=== PATIENT | female | born 1985 | race Caucasian/White ===

== ENCOUNTER 2018-12-09 11:07 | Day surgery (SDC) | payer BC ==
[~2018-12-09 11:07] MED LIST: Lactated Ringers 1,000 ML IV SCH; Oxytocin/Normal Saline 30 UNIT/500 ML BAG IV SCH
[2018-12-09] MEDS ORDERED: Lidocaine 2% 20 ML MDV INJECT ONE (11:08)
[2018-12-09] MEDS ORDERED: Ketorolac 30 MG/ML SDV IVPUSH ONE (11:08)
[2018-12-09] MEDS ORDERED: Ondansetron 4 MG/2 ML SDV IV ONE (11:08)
[2018-12-09] MEDS ORDERED: Propofol 200 MG/20 ML SDV IV ONE (11:08)
[2018-12-09] MEDS ORDERED: Succinylcholine 200 MG/10 ML MDV IV ONE (11:08)
[2018-12-09] MEDS ORDERED: Dexamethasone 4 MG/ML SDV IV ONE (11:08)
[2018-12-09] MEDS ORDERED: Midazolam 1 MG/ML 2 ML SDV IV ONE (11:08)
[2018-12-09] MEDS ORDERED: fentaNYL 100 MCG/2 ML SDV IV ONE (11:08)
[2018-12-09] MEDS ORDERED: Lactated Ringers 1,000 ML IV ONE (11:08)
[2018-12-09] MEDS ORDERED: Silver Nitrate Applicator Each ONE (11:23)
[2018-12-09] MEDS ORDERED: Ferric Subsulfate Topical Soln 8 GM (8 ML) Bottle ONE (11:23)
[2018-12-09] MEDS ORDERED: Ciprofloxacin in D5W 400 MG in Premix Bag 1 BAG IV ONE ×2 (13:04)
[2018-12-09] MEDS ORDERED: Oxytocin/Normal Saline 30 UNIT/500 ML BAG ONE (13:32)
--- NOTE | 2018-12-09 14:26 | HP ---
DATE OF SURGERY: She will be having surgery at approximately 1:45 or 2 p.m. today in the operating room. HISTORY OF PRESENT ILLNESS: This patient is a 33-year-old, 2, para 1 patient, who was referred to us by Dr. Deras. I also saw the patient approximately 2-1/2 days ago in the clinic. She does have a history of having miscarriage and having the passage of tissue and this occurred on November 25. By dates, the patient would have been at approximately 5 to 6 weeks' gestation at that time. As mentioned above, she did pass vaginal tissue and also she had a followup ultrasound ordered by Dr. Deras, which did not reveal any evidence for intrauterine retained products of conception. The patient did quite well at home, and then, she was seen again on followup about 1 week after November 25 visit. Her bleeding seemed to be subsiding at times and then once in a while it would get heavier in nature. Then, this past week, she had an episode of very heavy vaginal bleeding with some large clots. I evaluated her with Dr. Deras in the clinic on 12/07/2018. Her white blood cell count at that time was 6520 and her hemoglobin was 11.1, and we found that the cervix was closed and we did institute Cytotec 400 mcg initially and 200 mcg p.o. every 4-6 hours after that. The patient also gave us a progress report on the telephone the day afterwards and said that she thought her bleeding was somewhat better, but still some bleeding was occurring. Then, the patient also came to the clinic this morning stating that she did have a temperature up to 101.7 degrees early this morning or late last night. She may have had some intermittent chilling. She denies any foul odor to the vaginal discharge. Possibly 3 days ago, there might have been a slight odor to the discharge she states. PAST OBSTETRICAL HISTORY: She did have a section in [place] 2-1/2 years ago and had severe preeclampsia. She also states that she thinks she had aspiration pneumonia after that and apparently her was done under epidural anesthesia. OTHER PAST MEDICAL HISTORY: She otherwise denies any knowledge of heart, liver, or kidney or current lung disease. Previous surgery consists of section 2-1/2 years ago as well as appendectomy and PE tubes. Please see the EHR as it pertains to her current medication list, which consists of Zoloft and vitamins and recent Cytotec, etc. The patient does have a history of polycystic ovarian syndrome, as well as depression and anxiety previously. She states that her depression and anxiety symptoms are under good control at present. FAMILY HISTORY: Noncontributory. SOCIAL HISTORY: She is a nonsmoker and does not use alcohol. 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 PHYSICAL EXAMINATION: Vital Signs: Temperature was 99.3 in the clinic this morning, blood pressure 128/84, pulse 72. Weight 330 pounds. HEENT: The sclerae are nonicteric. Lungs: Clear to A. Heart: Regular rhythm without murmur. Abdomen: Soft, corpulent, and slightly tender in each lower quadrant. There is negative rebound tenderness. There is negative CVA tenderness. PELVIC: Repeat pelvic exam reveals a slight amount of bloody discharge in the vagina and the cervix appears to be closed. I do not detect any malodor to the vaginal secretions at present. The cervix is nontender to motion. On bimanual exam, the uterus is slightly tender, but I cannot detect the size because of her corpulence. She has some very slight bilateral adnexal tenderness to deep palpation, but I do not palpate any masses. Recent repeat transvaginal pelvic ultrasound was repeated again this morning. Of course, there is no evidence for viable , but the radiologist and I have personally discussed the possibility that there could be some possible retained products of conception or blood clot in the central and posterior aspect of the uterine corpus. IMPRESSION: Probable incomplete miscarriage, even though the patient was at just 5 to 6 weeks' gestation. She has not responded to our previous medical management with Cytotec. I note that her white blood cell count today is certainly very normal at 6100. Her hemoglobin today is 10.7. We do recommend D and C with possible suction curettage, and we will certainly give her preoperative antibiotics in the form of Cipro 400 mg IV preoperatively, and also, she will go home with a prescription of Cipro 500 mg p.o. b.i.d. for 7 days. She will see me in the office in approximately 1 weeks, and she will certainly call her attending physician, Dr. Deras, if there are any questions or problems whatsoever in the postoperative period and Dr. Deras is information systems project manager this weekend along with Dr. Shine while I am out of town. We did thoroughly discuss today's procedure and we discussed the goals of the procedure as well as the slight possibility of complications and adverse outcomes including infection, possible organ injury or possible uterine perforation, and remote chances of even hysterectomy. She indeed understands everything we have talked about and does give consent to the procedure. [facility] /[id number] MTDD
--- NOTE | 2018-12-09 22:23 | OR ---
DATE: 12/09/2018 PREOPERATIVE DIAGNOSES: 1. Incomplete miscarriage at approximately 6 weeks' gestation. 2. Possible early endometritis. OPERATIONS PERFORMED: 1. Examination under anesthesia. 2. Dilation and curettage with suction curettage. POSTOPERATIVE DIAGNOSES: 1. Incomplete miscarriage at approximately 6 weeks' gestation. 2. Possible early endometritis. 3. Pathology report pending. DESCRIPTION: After satisfactory general anesthesia was achieved and after the patient had received IV Cipro 400 mg preoperatively, we did proceed with the procedure. The patient was routinely prepped and draped in the usual fashion of course. Bimanual exam revealed the uterus to be in the midposition, and it was somewhat difficult to palpate the uterine size because of her weight of 330 pounds. Now, a weighted speculum was utilized first of all, but because of the depth of the vagina, we did have to convert over to 2 long Ad retractors used both anteriorly and then posteriorly to identify the cervix. The cervix was high in the vaginal vault. The cervix was actually closed. Also, we used a headlamp for better illumination. Now, a single-tooth tenaculum was carefully attached to the anterior lip of the cervix, and the uterus was very gently sounded to approximately 7 to 8 cm. The uterus was in the midposition. Now, the cervix was carefully dilated to #8 and #10 Hegar, and this was done very carefully and gently. Now, the curette was introduced, and a slight amount of tissue was obtained on the curettage. Great caution was taken to make sure that we carefully and systematically curetted all aspects of the uterine cavity, but we were also careful to not over-curette this delicate organ. Now, the suction curette was introduced using a #8 curved cannula, and a slight amount of further tissue was obtained. IV intraoperative Pitocin was now begun at this time. All of the tissue was submitted to the pathologist. All of the instruments were now removed from the cervix. The sponge and instrument count was reported as correct. Estimated blood loss was approximately 50 mL. The patient tolerated the procedure very well and went to the recovery room in good condition. Estimated blood loss, as mentioned above, was approximately 50 mL, and there were no complications of course. The patient did have general anesthesia. Very close and thorough followup instructions were given to the patient and her , and we will also give her Cipro 500 mg p.o. b.i.d. for 8 more days. They were encouraged to call us at once if any questions or problems whatsoever, such as excess bleeding, fever, unusual excess pain, or any leg or lung problems, etc., whatsoever. [facility] /[id number]
== END 2018-12-09 17:45 | disposition home or self-care (01) ==
LOC: DL.SDS 11:07
PROVIDERS: ATTEND Obstetrics & Gynecology
DX: O03.4 Incomplete spontaneous abortion without complication (principal); E28.2 Polycystic ovarian syndrome; K21.9 Gastro-esophageal reflux disease without esophagitis; F32.9 Major depressive disorder, single episode, unspecified; F41.9 Anxiety disorder, unspecified; F32.81 Premenstrual dysphoric disorder; E66.01 Morbid (severe) obesity due to excess calories; Z88.0 Allergy status to penicillin; Z79.899 Other long term (current) drug therapy; Z68.43 Body mass index [BMI] 50.0-59.9, adult
CPT/HCPCS: J0330; J0744; J1100; J1885; J2001; J2250; J2405; J2590; J2704; J3010; J7120

== ENCOUNTER 2020-01-22 11:08 | Observation (INO) | payer BC ==
[2020-01-22] MEDS ORDERED: Acetaminophen 325 MG Tab PO PRN (11:13)
[2020-01-22] MEDS ORDERED: Sodium Chloride 0.9% 10 ML Syringe FLUSH PRN (11:13)
[2020-01-22] MEDS ORDERED: Lactated Ringers 1,000 ML IV SCH (11:15)
[2020-01-22 12:21] LABS: ANION GAP 15.2 mEq/L (7-13); CHLORIDE,CL 102 mmol/L (98-107); PTT,PARTIAL THROMBOPLSTIN TIME 27.1 SEC (22.0-34.0); SODIUM,NA 137 mmol/L (136-145)
[2020-01-22] MEDS: guaiFENesin 600 MG Tab.ER PO SCH ×2 (14:14→21:20)
--- NOTE | 2020-01-22 14:37 | CR ---
EXAMINATION: Chest 1V Frontal SEX: Female AGE: 34 years CLINICAL HISTORY: 34-year-old female with increasing shortness of breath. Interpretation: Upright AP portable chest film unremarkable. Normal cardiac silhouette and pulmonary vascularity. No vascular congestion, cephalization of flow, alveolar edema or dependent effusion. Breast shadows superimposed on lateral chest wall. No focal lobar infiltrate or atelectasis. No lung mass or hilar lymphadenopathy. No pneumothorax, pneumomediastinum or free subdiaphragmatic air. Midline trachea unremarkable. CONCLUSION: Negative exam.
[2020-01-22] MEDS ORDERED: Lactated Ringers 1,000 ML IV ONE ×2 (15:25→20:52)
[2020-01-22] MEDS: Ferrous Sulfate 325 MG Tab PO SCH (18:08)
--- NOTE | 2020-01-22 20:30 | HP ---
CHIEF COMPLAINT: Cough with shortness of breath. HISTORY OF PRESENT ILLNESS: This is a 34-year-old 3, para 1-0-1-1, currently at 31-4/7 weeks' , the patient of Dr. Deras, who presents to the clinic and is seen by the nurse practitioner for increased shortness of breath and decreased oral intake of fluids and generally not improving from recent respiratory illness. Reports that her daughter was seen, evaluated, and diagnosed with croup about 2 weeks ago. About 1 week later, the patient developed symptoms of shortness of breath and cough. She was COVID tested on 01/14, which was negative. She was treated with a prescription for Vantin and is on approximately day 6 of that therapy and reports she has not missed any doses. She is also using some Mucinex DM to help control her symptoms. At this time complaining of chills, sweats, nasal congestion, runny nose, occasional productive cough, wheezing, increased shortness of breath, weakness and fatigue, headache, nausea, vomiting, and diarrhea. She has not had any fever. She still maintains her sense of taste and smell. Denies any abdominal pain. The baby movement has been good. No leakage of fluid or vaginal bleeding. No symptoms of preeclampsia at this time. Having some mild swelling in her legs, but nothing like she has experienced in the past with her preeclampsia, checking her blood pressures at home, and those have been fine. She denies any history of significant respiratory problems and reports she has had some different respiratory illnesses in the past, but nothing quite like this. PAST MEDICAL HISTORY: 1. Anxiety and depression. 2. Obesity. 3. Polycystic ovarian syndrome. 4. Premenstrual dysphoric disorder. 5. Preeclampsia in prior . 6. History of miscarriage x1. : She follows with Dr. Zuleima Deras. Influenza vaccine was declined on 01/02/2020. PIH labs were negative at 28 weeks. She has some mild anemia of and is taking iron with vitamin C once daily. PAST SURGICAL HISTORY: 1. section on 06/04/2016. 2. Laparoscopic appendectomy in 2013. 3. PE tube placement in 1990. 4. [place] teeth extractions split out as 2 separate procedures in 2009. FAMILY HISTORY: Mother is alive with anxiety. Had a history of delivery x3. Miscarriage x6. Premature rupture of membranes. Father is alive and has a history of traumatic brain injury. Two brothers are alive and well. All of the grandparents are . Maternal grandmother had complications of West Nile. Paternal grandmother had complications of influenza. Maternal grandfather has a history of alcohol abuse. Paternal grandfather has a history of heart attack. SOCIAL HISTORY: The patient is a nonsmoker, but her smokes outside. No use of any alcohol or drugs. She is and works over at the [employer], currently they only have 2 clients staying there and she has had minimal contact with them. They have 1 daughter. MEDICATIONS: Aspirin 81 mg p.o. daily, Vantin 200 mg p.o. b.i.d., sertraline 100 mg p.o. daily, vitamin C 500 mg daily, iron sulfate 325 mg daily, Benadryl 50 mg as needed, vitamin 1 daily, and Zyrtec 10 mg daily has needed. ALLERGIES: Penicillin causes a rash. REVIEW OF SYSTEMS: As per the history of present illness. She denies any uterine contractions. No new numbness or tingling. No skin rashes. No new psychiatric symptoms. PHYSICAL EXAMINATION: General: A 34-year-old female, in no acute distress, but does have visible shortness of breath at the clinic. Vital Signs: Blood pressure is 134/87; pulse of 104; temperature is 98.7; weight is 334 pounds, is actually a decrease of 9 pounds from when she was seen on 01/15/2020; and O2 saturation is 95% on room air. HEENT: Head is normocephalic and atraumatic. The tympanic membranes are normal. Nasal congestion is present. Mucous membranes are somewhat dry. Oropharynx is clear, but there is some mild erythema of the tonsillar pillars. Heart: Tachycardic and regular without murmur. Lungs: Decreased air movement throughout, and left upper lobe with some expiratory wheezing noted. Abdomen: Soft and nontender. Nonstress test is currently pending. No lymphadenopathy. Neurological: No focal deficits. Psychiatric: Appropriate and oriented to who, the situation, and circumstances. ASSESSMENT: 1. Respiratory infection, needs further evaluation to delineate bronchitis, pneumonia, and etiology whether viral bacterial or COVID-19. 2. Clinical dehydration as evidenced by tachycardia, dark urine, and reported poor oral intake. 3. Cough. 4. 31 weeks 4 days' gestation. 5. History of preeclampsia in prior . 6. Anemia of . 7. History of anxiety and depression. 8. The patient has declined influenza and Tdap vaccines. PLAN: At this time, the patient will be admitted to the hospital. We will collect a rapid COVID test as well as a strep test. I will get her started on some IV fluids, initially planning on those being boluses rather than a continuous infusion. I have consulted the hospitalist and discussed a number of tests that he would like performed for baseline, understanding that some of these may be elevated just because of , but we will include CBC, CMP, CRP, lactic acid, procalcitonin, ferritin, troponin, LDH, INR, PTT, and a BN peptide levels to reassure the patient. We can do a single view chest x-ray, which would be a minimal to no risk for the baby, but pending her clinical course and how that x-ray first appears, we may need to proceed forward with low- dose CT scan hoping that this infection turns out not to be a COVID infection, and she can be managed more as a bronchitis or pneumonia type situation, but discussed with her the importance of full evaluation and what needs to be performed. The hospitalist can see her later on today after all of her lab results are in. [facility] /[id number]
[2020-01-22] MEDS ORDERED: Azithromycin 250 MG Tab PO STA (20:58)
[2020-01-22] MEDS ORDERED: Prenatal Multivitamin with Calcium/Folic Acid/Iron Tab PO SCH (21:00)
[2020-01-22] MEDS ORDERED: Sertraline 50 MG Tab PO SCH (21:00)
[2020-01-22] MEDS: Ascorbic Acid 500 MG Tab PO SCH (21:20)
[2020-01-23] MEDS ORDERED: Aspirin 81 MG Tab.EC PO SCH (08:00)
[2020-01-23] MEDS: guaiFENesin 600 MG Tab.ER PO SCH (08:18)
[2020-01-23] MEDS: Ferrous Sulfate 325 MG Tab PO SCH (09:56)
[2020-01-23] MEDS: Ascorbic Acid 500 MG Tab PO SCH (09:57)
--- NOTE | 2020-01-23 10:25 | DISCH ---
ADMITTING DIAGNOSES: 1. Lower respiratory tract infection. 2. Dehydration in . 3. Cough. 4. 31 weeks' 4 days' gestation. 5. History of preeclampsia, prior , requiring delivery. 6. Anemia of . 7. Anxiety and depression history. 8. The patient declined influenza and Tdap vaccinations. DISCHARGE DIAGNOSES: 1. Lower respiratory tract infection. 2. Dehydration in . 3. Cough. 4. 31 weeks' 4 days' gestation. 5. History of preeclampsia, prior , requiring delivery. 6. Anemia of . 7. Anxiety and depression history. 8. The patient declined influenza and Tdap vaccinations. 9. Clinically ruled out for coronavirus disease at this time. Overall impression consistent with viral respiratory infection. However, with having 6 to 7 days of antibiotics prior, cannot rule out bacterial infection. BRIEF HISTORY: A 34-year-old female with the above-listed diagnoses presented to the clinic reporting onset of respiratory symptoms greater than 1 week ago and having had about 6 days of Vantin oral antibiotics, but increasing shortness of breath, decreased ability to take down fluids well. -related symptoms were really none. She had several respiratory illness infections including chills, sweats, nasal congestion, runny nose, productive cough, wheezing, increased shortness of breath, weakness, fatigue, headache, nausea, vomiting, and diarrhea, but had not had fever. Since her symptoms were worsening and she was tachycardic, decision was made to admit her to the hospital for IV fluid rehydration and complete evaluation for potential COVID infection despite having a negative COVID test 1 week earlier. Upon admission, I discussed the patient's case with the hospitalist to get further recommendations regarding appropriate yet full clinical workup for COVID infection and lab orders were placed based on his recommendations. Her CBC showed white blood cell count of 6.9, hemoglobin 11.4, neutrophils 86.4%, and platelets 239. PT and INRs are normal. Comprehensive metabolic profile remarkable for an anion gap of 15.2, BUN normal for at 6, AST of 13, alkaline phosphatase normal for at 154, albumin 2.3, otherwise unremarkable. Her C-reactive protein is elevated at 6.4. Troponin is negative. LDH normal. Ferritin normal. Lactic acid normal at 1.4, and her rapid COVID test was negative. Chest x-ray was read out as negative per the radiologist, but I do see just some mild infiltrative signs consistent with her productive cough, but no focal pneumonias, infiltrates, and not consistent with atypical COVID infection x-ray. HOSPITAL COURSE: Overnight, she received a total of 3 L of IV fluids via IV fluid boluses and her pulse rate came down into the 70s and 80s. Blood pressures were well controlled in the 130s over 60s and 80s, respiratory rate of 16, and her O2 saturations maintained well on room air. By the morning after admission, she was already starting to feel better. The incentive spirometer was helping her with increased production of her cough and overall helping get the mucus out of her chest making it easier for her to breathe. She feels well going home and that she can manage well at home with her symptoms. Discussed with her that this is likely a simple viral infection. However, with a week of antibiotics, it is a little bit confusing, so we are going to discharge her home on 2 more doses of Zithromax to finish out the course and she understands she needs to stay home from work until she is symptomatically improved and doing better from that standpoint. She has been afebrile, so absence of fever is not going to be one of the criteria. DISCHARGE CONDITION: Improved. PHYSICAL EXAMINATION: Vital Signs: Temperature is 98.9, pulse 75, blood pressure 134/66, respiratory rate of 16, O2 saturation was last 99% on room air. NSTs have been category 1, reactive and reassuring for criteria. Heart: Regular without murmur. Lungs: Mostly clear, but she does have a little bit of rhonchi noted in the right lower lobe this morning. Abdomen: Soft, nontender. Gravid uterus. Positive bowel sounds. Extremities: Edema is trace. LABORATORY DATA: No new labs on day of discharge. DISCHARGE MEDICATIONS: Continue Zoloft 100 mg p.o. daily, Zithromax 500 mg p.o. daily for 2 days, vitamin, continue 1 daily, aspirin 81 mg 1 daily, vitamin C 500 mg daily, and iron 325 mg daily. ADDITIONAL LABORATORIES: Influenza and strep swabs were also negative. FOLLOWUP: She will see Dr. Deras next week in clinic for routine care and followup of this hospitalization. The patient is comfortable with that plan and all of her questions answered. She understands reasons to return to clinic or hospital for further evaluation should any problems arise. [facility] /[id number]
== END 2020-01-23 11:11 | disposition home or self-care (01) ==
LOC: UNDOADMOB 11:13 → DL.MS 11:13
PROVIDERS: ADMIT Family Medicine; ATTEND Family Medicine
DX: J22 Unspecified acute lower respiratory infection (principal); O99.283 Endocrine, nutritional and metabolic diseases complicating pregnancy, third trimester; R05 Cough; O99.013 Anemia complicating pregnancy, third trimester; F41.9 Anxiety disorder, unspecified; F32.9 Major depressive disorder, single episode, unspecified; E66.9 Obesity, unspecified; E28.2 Polycystic ovarian syndrome; Z87.59 Personal history of other complications of pregnancy, childbirth and the puerperium; Z90.89 Acquired absence of other organs; Z20.828 Contact with and (suspected) exposure to other viral communicable diseases; Z88.0 Allergy status to penicillin; Z79.899 Other long term (current) drug therapy; Z79.82 Long term (current) use of aspirin; Z68.43 Body mass index [BMI] 50.0-59.9, adult; Z3A.31 31 weeks gestation of pregnancy
CPT/HCPCS: 36415; 59025; 71045; 80053; 82570; 82728; 83605; 83615; 83880; 84156; 84484; 85025; 85610; 85730; 86140; 87081; 87430; 87635; 87804; 96360; 96361; A9270; G0378; G0379; J7120; U0002

== ENCOUNTER 2020-02-16 19:19 | Inpatient (IN) | payer BC ==
[~2020-02-16 19:19] MED LIST changes: -Lactated Ringers 1,000 ML IV SCH; +Oxytocin/Normal Saline 30 UNIT/500 ML BAG IV ONE; -Oxytocin/Normal Saline 30 UNIT/500 ML BAG IV SCH
[2020-02-16] MEDS: Lactated Ringers 1,000 ML IV SCH ×3 (19:40→23:21)
[2020-02-16] MEDS ORDERED: Carboprost Tromethamine 250 MCG/1 ML Amp IM PRN (19:43)
[2020-02-16] MEDS ORDERED: Methylergonovine 0.2 MG Tab PO PRN (19:43)
[2020-02-16] MEDS ORDERED: Tranexamic Acid 1,000 MG in Sodium Chloride 0.9% 100 ML IV PRN (19:43)
[2020-02-16] MEDS ORDERED: Oxytocin/Normal Saline 30 UNIT/500 ML BAG IV SCH (19:45)
[2020-02-16] MEDS ORDERED: Magnesium Sulfate/Water 100 ML ONE (19:47)
[2020-02-16] MEDS ORDERED: Labetalol 20 MG/4 ML Syringe ONE (19:51)
[2020-02-16] MEDS ORDERED: Oxytocin/Normal Saline 60 UNIT/1,000 ML BAG ONE (19:53)
--- NOTE | 2020-02-16 19:54 | PCM.LDHP ---
L&D History of Present Illness - General Date of Service: 02/16/20 Admit Problem/Dx: Patient Status Order with Admit Dx/Problem 02/16/20 19:43 Patient Status [ADT] Routine Admission Diagnosis/Problem Admission Diagnosis/Problem care - History of Present Illness Introduction:: 34-year-old at 35w1d presents to L&D with a gush of fluid followed by vaginal bleeding. Upon arrival to L&D a saturated pad was noted with blood in the toilet as well. Patient has a history of pre-eclampsia with a prior at 35w3d. She is currently on aspirin. BPs at last OB visits were 140s over 80s. Patient denies headaches, increased swelling or abdominal pain. Patient is COVID positive. - Related Data Allergies/Adverse Reactions: Allergies Allergy/AdvReac Type Severity Reaction Status Date / Time Penicillins Allergy Rash Verified 11/25/18 16:32 Home Medications: Home Meds Cetirizine HCl [Zyrtec] 10 mg PO ASDIRECTED PRN 11/25/18 [History] diphenhydrAMINE HCL [Benadryl Allergy] 50 mg PO .PRN PRN 12/09/18 [History] Aspirin [Halfprin] 81 mg PO DAILY 01/22/20 [History] Calcium Carb/Vitamin D3/Vit K1 [Calcium + D Soft Chewable Tab] 2 tab.chew PO DAILY 01/22/20 [History] Pnv No.103/Folic/Om3s/Fish Oil [ Gummies] 2 tab.chew PO DAILY 01/22/20 [History] Sertraline [Zoloft] 100 mg PO BEDTIME 01/22/20 [History] Azithromycin [Zithromax] 500 mg PO DAILY #2 tab 01/23/20 [Rx] guaiFENesin [Mucinex] 600 mg PO TID tab.er 01/23/20 [Rx] Past Medical History HEENT History: Reports: Impaired Vision Cardiovascular History: Reports: None Respiratory History: Reports: None Gastrointestinal History: Reports: Other (See Below) Other Gastrointestinal History: GERD during previous Genitourinary History: Reports: None 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 History: Reports: Polycystic Ovaries, Other OB/BYN History: ovarian cysts Musculoskeletal History: Reports: Back Pain, Chronic, Neck Pain, Chronic, Other (See Below) Other Musculoskeletal History: nerve sensitivity at site of her epidural she had 2 years ago Neurological History: Reports: None Psychiatric History: Reports: Anxiety, Depression, Panic Attack Endocrine/Metabolic History: Reports: Obesity/BMI 30+ Hematologic History: Reports: Iron Deficiency Immunologic History: Reports: None Oncologic (Cancer) History: Reports: None Dermatologic History: Reports: None - Infectious Disease History Infectious Disease History: Reports: Chicken Pox - Past Surgical History HEENT Surgical History: Reports: Myringotomy w Tube(s) Cardiovascular Surgical History: Reports: None GI Surgical History: Reports: Appendectomy Female Surgical History: Reports: Section, D&C Endocrine Surgical History: Reports: None Musculoskeletal Surgical History: Reports: None Social & Family History - Family History Family Medical History: Noncontributory - Caffeine Use Caffeine Use: Reports: Coffee Other Caffeine Use: 2 cans of soda daily. Occasional coffee drinker Caffeine Use Comment: once per week - Living Situation & Occupation Living situation: Reports: with Family H&P Review of Systems - Review of Systems: Review Of Systems: See Below General: Reports: No Symptoms HEENT: Reports: No Symptoms Pulmonary: Reports: No Symptoms Cardiovascular: Reports: No Symptoms Genitourinary: Reports: Other (Vaginal bleeding) Musculoskeletal: Reports: No Symptoms Skin: Reports: No Symptoms Psychiatric: Reports: No Symptoms Neurological: Reports: No Symptoms L&D Exam - Exam Exam: See Below - OB Specific Movement: Active Heart Tones: Present Heart Tones per Min: 150 Heart Rate (FHR) Variability: Moderate (6-25 bmp) - Exam General: Alert, Oriented Lungs: Clear to Auscultation, Normal Respiratory Effort Cardiovascular: Regular Rate, Regular Rhythm. No: Systolic Murmur, Diastolic Murmur Extremities: Pedal Edema (Trace bilaterally) Skin: Warm, Dry, Intact Psychiatric: Alert - Problem List (1) care in third trimester SNOMED Code(s): 228994580, 50813627, 73905789, 728621697, 294378956 ICD Code: Z34.93 - ENCNTR FOR SUPRVSN OF NORMAL PREG, UNSP, THIRD TRIMESTER Status: Acute Current Visit: Yes (2) Pre-eclampsia in third trimester SNOMED Code(s): 409575072, 820644806 ICD Code: O14.93 - UNSPECIFIED PRE-ECLAMPSIA, THIRD TRIMESTER Status: Acute Current Visit: Yes (3) Vaginal bleeding, abnormal SNOMED Code(s): 494915624 ICD Code: N93.9 - ABNORMAL UTERINE AND VAGINAL BLEEDING, UNSPECIFIED Status: Acute Current Visit: Yes (4) Anemia affecting in third trimester SNOMED Code(s): 46423342, 56301365 ICD Code: O99.013 - ANEMIA COMPLICATING , THIRD TRIMESTER Status: Acute Current Visit: Yes Problem List Initiated/Reviewed/Updated: Yes Orders Last 24hrs: Active Orders 24 hr Category Date Time Status Patient Status [ADT] Routine ADT 02/16/20 19:43 Ordered Non Stress Test [RC] PER UNIT ROUTINE Care 02/16/20 19:43 Ordered Notify Provider Vital Signs OB [RC] ASDIRECTED Care 02/16/20 19:43 Ordered Peripheral IV Care [RC] . DIRECTED Care 02/16/20 19:44 Ordered Procedure Site Prep Instruct [RC] ASDIRECTED Care 02/16/20 19:43 Ordered RT Incentive Spirometry [RC] ASDIRECTED Care 02/16/20 19:43 Ordered Vital Signs [RC] PER UNIT ROUTINE Care 02/16/20 19:43 Ordered Nothing Per Oral Diet [DIET] Diet 02/16/20 Breakfast Ordered ABO/RH TYPE [BBK] Routine Lab 02/16/20 19:48 Ordered ALANINE AMINOTRANSFERASE,ALT [CHEM] Routine Lab 02/16/20 19:47 Ordered ASPARTATE AMNIOTRANSFERASE,AST [CHEM] Routine Lab 02/16/20 19:47 Ordered BLOOD UREA NITROGEN,BUN [CHEM] Routine Lab 02/16/20 19:47 Ordered CBC W/O DIFF,HEMOGRAM [HEME] Routine Lab 02/16/20 19:47 Ordered CBC WITH AUTO DIFF [HEME] Routine Lab 02/16/20 19:43 Ordered CREATININE W/GFR [CHEM] Routine Lab 02/16/20 19:47 Ordered LACTATE DEHYDROGENASE,LDH [CHEM] Routine Lab 02/16/20 19:47 Ordered PROTEIN/CREATININE RATIO,URINE [URCHEM] Routine Lab 02/16/20 19:47 Ordered RED BLOOD CELLS LP [BBK] Urgent Lab 02/16/20 19:43 Ordered TYPE AND SCREEN [BBK] Routine Lab 02/16/20 19:43 Ordered TYPE AND SCREEN [BBK] Urgent Lab 02/16/20 19:43 Ordered UA W/O MICROSCOPIC [URIN] Routine Lab 02/16/20 19:47 Ordered URIC ACID [CHEM] Routine Lab 02/16/20 19:47 Ordered Carboprost Tromethamine [Hemabate DS] Med 02/16/20 19:43 Ordered 250 mcg IM ASDIRECTED PRN Citric Acid/Sodium Citrate [Bicitra Solution] Med 02/16/20 19:43 Once 30 ml PO ONETIME ONE Labetalol [Normodyne] Med 02/16/20 19:46 Once 40 mg IVPUSH ONETIME ONE Lactated Ringers @ 125 MLS/HR(1000ml) Med 02/16/20 19:45 Ordered Lactated Ringers [Ringers, Lactated] 1,000 ml IV ASDIRECTED Lactated Ringers [Ringers, Lactated] 1,000 ml Med 02/16/20 19:45 Ordered IV .BOLUS Magnesium Sulfate 2 GM in Water @ 100 MLS/HR (200ml) Med 02/16/20 19:47 Ordered Magnesium Sulfate/D5W [Magnesium Sulfate in D5W 100 Premix] 1 gm in 100 ml IV ONETIME Magnesium Sulfate 4 GM in Water @ 300 MLS/HR (100ml) Med 02/16/20 19:47 Ordered Magnesium Sulfate/Water [Magnesium Sulfate in Water Premix] 4 gm in 100 ml IV ONETIME Methylergonovine [Methergine] Med 02/16/20 19:43 Ordered 0.2 mg PO ONETIME PRN Oxytocin 30 Units in NS @ 2 MUNITS/MIN(500ml) Med 02/16/20 19:45 Ordered Oxytocin/Normal Saline [Pitocin in NS 30 UNIT/500 ML] 30 unit in 500 ml IV TITRATE Sodium Chloride 0.9% [Saline Flush] Med 02/16/20 19:43 Ordered 10 ml FLUSH ASDIRECTED PRN Tranexamic Acid [Cyklokapron] 1,000 mg Med 02/16/20 19:43 Ordered Sodium Chloride 0.9% [Normal Saline] 100 ml IV ONETIME ceFAZolin [Ancef] 2 gm Med 02/16/20 19:43 Ordered Premix Bag 1 bag IV ONETIME Peripheral IV Insertion Adult [OM.PC] Routine Oth 02/16/20 19:43 Ordered Schedule Procedure [COMM] Per Unit Routine Oth 02/16/20 19:43 Ordered Resuscitation Status Routine Resus Stat 02/16/20 19:43 Ordered Medication Orders Carboprost Tromethamine (Hemabate Ds) 250 mcg IM ASDIRECTED PRN PRN Reason: Excessive vaginal bleeding Citric Acid/Sodium Citrate (Bicitra Solution) 30 ml PO ONETIME ONE Stop: 02/16/20 19:44 Tranexamic Acid 1,000 mg/ (Sodium Chloride) 110 mls @ 660 mls/hr IV ONETIME PRN PRN Reason: Bleeding Oxytocin/Sodium Chloride (Pitocin In Ns 30 Unit/500 Ml) 30 unit in 500 mls @ 2 mls/hr IV TITRATE NICOLA; Protocol Cefazolin Sodium/Dextrose 2 gm (/ Premix) 50 mls @ 100 mls/hr IV ONETIME ONE Stop: 02/16/20 20:12 Magnesium Sulfate (Magnesium Sulfate In Water Premix) 4 gm in 100 mls @ 300 mls/hr IV ONETIME ONE Stop: 02/16/20 20:06 Magnesium Sulfate/Dextrose (Magnesium Sulfate In D5w 100 Premix) 1 gm in 100 mls @ 100 mls/hr IV ONETIME ONE Stop: 02/16/20 20:46 Lactated Ringer's (Ringers, Lactated) 1,000 mls @ 125 mls/hr IV ASDIRECTED NICOLA Lactated Ringer's (Ringers, Lactated) 1,000 mls @ 500 mls/hr IV .BOLUS NICOLA Labetalol HCl (Normodyne) 40 mg IVPUSH ONETIME ONE Stop: 02/16/20 19:47 Methylergonovine Maleate (Methergine) 0.2 mg PO ONETIME PRN PRN Reason: Excessive vaginal bleeding Sodium Chloride (Saline Flush) 10 ml FLUSH ASDIRECTED PRN PRN Reason: Keep Vein Open Assessment/Plan Comment:: 1. PIH labs and CBC ordered 2. Will proceed with repeat section ANGÉLICA 3. 40 mg IV labetalol ANGÉLICA 4. Will plan to initiate magnesium after closure 5. 1 gram TXA after delivery of 6. Routine preoperative orders Zuleima Deras MD
[2020-02-16] MEDS ORDERED: Citric Acid/Sodium Citrate Solution 30 ML Cup ONE (20:00)
[2020-02-16] MEDS ORDERED: Lactated Ringers 1,000 ML IV SCH ×2 (20:30→22:00)
[2020-02-16] MEDS ORDERED: Labetalol 20 MG/4 ML Syringe IVPUSH ONE (20:30)
[2020-02-16] MEDS ORDERED: ceFAZolin 2 GM in Premix Bag 1 BAG IV ONE (20:30)
[2020-02-16] MEDS ORDERED: Citric Acid/Sodium Citrate Solution 30 ML Cup PO ONE (20:30)
[2020-02-16] MEDS ORDERED: Magnesium Sulfate/Water 4 GM/100 ML BAG IV ONE (20:30)
[2020-02-16] MEDS ORDERED: Magnesium Sulfate/D5W 1 GM/100 ML BAG IV ONE (21:00)
[2020-02-16] MEDS ORDERED: Magnesium Sulfate/Water 20 GM/500 ML BAG ONE (21:45)
[2020-02-16] MEDS ORDERED: ePHEDrine 50 MG/ML SDV IVPUSH PRN (21:47)
[2020-02-16] MEDS ORDERED: Ondansetron 4 MG/2 ML SDV IVPUSH PRN (21:47)
[2020-02-16] MEDS ORDERED: diphenhydrAMINE 50 MG/ML SDV IVPUSH PRN (21:47)
[2020-02-16] MEDS ORDERED: Misoprostol 400 MCG (4 X 100 MCG TAB) RECTAL PRN (21:47)
[2020-02-16] MEDS ORDERED: Methylergonovine 0.2 MG/1 ML Amp IM PRN (21:47)
[2020-02-16] MEDS ORDERED: Naloxone 2 MG/2 ML Syringe IVPUSH PRN (21:47)
[2020-02-16] MEDS ORDERED: Acetaminophen 325 MG Tab PO PRN (21:47)
[2020-02-16] MEDS ORDERED: Acetaminophen/oxyCODONE 325-5 MG Tab PO PRN ×2 (21:47)
--- NOTE | 2020-02-16 21:57 | PCM.PRNOTE ---
- Free Text/Narrative Note: Section Operative Report Date of Surgery: 02/16/2020 Surgeon: Zuleima Deras MD Solution Analyst: Suzan Ruffin MD Pre-Operative Diagnosis: at 35w1d Vaginal bleeding Severe pre-eclampsia History of miscarriage Anemia in Post-Operative Diagnosis: Same Procedure Performed: Repeat low transverse section Anesthesia: General EBL: 2400 mL IVF: 1800 mL Drains: Irvin catheter with 175 mL of urine output Specimens: None Complications: Placental abruption, 500 cc clot Findings: Normal uterus, tubes, and ovaries. Indication and Consent: Due to persistent vaginal bleeding and blood pressures consistent with severe pre-eclampsia, section was recommended to the patient for wellbeing. The patient understood that the risks of section include, bu t are not limited to, visceral or vascular injury, infection, blood loss and need for blood transfusion, prolonged hospitalization, and reoperation. The patient stated understanding and desired to proceed. All questions were answered. Procedure in Detail: The patient was taken to the operating room. Spinal anesthesia was administered. Irvin catheter and pneumoboots were placed. She was then prepped and draped in routine fashion in dorsal supine position with a left rodriguez tilt. Two grams of cefazolin (Ancef) were given for infection prophylaxis. A Pfannenstiel skin incision was made with a scalpel. The incision was carried down to the fascia sharply. The fascia was incised and extended laterally. The superior aspect of the fascia was grasped with Lolita clamps; the underlying rectus muscle and pyramidalis was dissected off with sharp and blunt technique. In a similar fashion, the inferior aspect of the fascia was elevated with Lolita clamps and the rectus muscle was dissected off. Hemostasis was achieved with the Bovie. The rectus musculature was in the midline down to the level of the pubic symphysis. Pre-peritoneal fatty tissue was bluntly dissected to expose the peritoneum. The peritoneum was found to be free of adherent bowel or bladder tissue and entered bluntly. The peritoneal opening was then extended superiorly and inferiorly to the bladder reflection with good visualization of the bladder. The Jesus retractor was inserted. Intraabdominal survey revealed scant, clear peritoneal fluid and thinned-out lower uterine segment. The vesicouterine peritoneum was opened with a pickup and mets, and the bladder flap was developed. The bladder blade was repositioned to keep the bladder out of the operative field. The lower uterine segment was incised with a scalpel. The uterine incision was extended bluntly with lateral and upward traction. A large, approximately 500 mL, blood clot was removed from the uterine incision. The fetus was in cephalic position. The head was elevated out of the maternal pelvis with special attention paid to avoid using the uterine incision as a fulcrum. Gentle fundal pressure was applied once the head was brought into the incision. The infant was delivered with minimal difficulty. Bulb suctioning of the infant's nose and mouth was performed on the operative field. Cord blood was collected.The cord was clamped and cut in standard fashion, and the infant was handed over to the awaiting nursery staff. IV oxytocin was initiated to facilitate uterine contractions. The placenta was delivered intact with manual message of the uterine fundus along with gentle cord traction. The uterus was then exteriorized. The inside of the uterus was gently wiped with a lap sponge to assure complete removal of remaining products of conception. The uterine incision was closed with 0 - Vicryl suture in a running locked fashion. A second imbricating layer of 0- Monocryl was also placed. The incision was inspected and hemostasis was achieved. The ovaries and tubes were visualized and found to be normal. The uterus, tubes, and ovaries were returned to the abdominal cavity. The blood clots and fluid were wiped out of the abdomen and pelvis with moist laparotomy sponges. The uterine incision was re-inspected along with all other incised surfaces and good hemostasis was confirmed. The Jesus retractor was removed. The fascia was then closed with 2-0 looped PDS suture with care not to include any underlying abdominal contents. The sub-cutaneous layer was reapproximated with plain gut suture. The skin was closed with 4-0 Monocryl suture on a Spike needle in a subcuticular fashion. Sponge and instrument counts were reported as correct times two. Patient tolerated procedure well and was taken to PACU in stable condition. Zuleima Deras MD
--- NOTE | 2020-02-16 21:57 | PCM.DEL ---
L & D Note - General Info Date of Service: 02/16/20 Mother's Due Date: 03/21/20 - Delivery Note Labor: Spontaneous Delivery Outcome: Livebirth Infant Delivery Method: Emergent Presentation: Vertex Nuchal Cord: None Anesthesia Type: Spinal Episiotomy Type: None Laceration: None Placenta: Intact, Manual Removal Cord: 3 Vessels Estimated Blood Loss: 2,400 Resuscitation Needed: Yes : Bulb Syringe, Stimulated, Warmed Delivery Comments (Free Text/Narrative):: Please see procedure note for details - General Info Date of Service: 02/16/20 - Patient Data Lab Results Last 24 Hours: Laboratory Results - last 24 hr 02/16/20 02/16/20 02/16/20 Range/Units 19:35 19:35 19:35 WBC 10.6 H (5.0-10.0) 10^3/uL RBC 4.25 (4.2-5.4) 10^6/uL Hgb 11.8 L (12.0-16.0) g/dL Hct 36.0 L (37.0-47.0) % MCV 84.7 (80-100) fL MCH 27.8 (27.0-34.0) pg MCHC 32.8 L (33.0-35.0) g/dL Plt Count 248 (150-450) 10^3/uL BUN 11 (7-18) mg/dL Creatinine 1.02 (0.55-1.02) mg/dL Est Cr Clr Drug Dosing TNP Estimated GFR (MDRD) > 60 Uric Acid 7.4 H (2.6-6.0) mg/dL AST 22 (15-37) U/L ALT 18 (14-59) U/L Lactate Dehydrogenase 248 H (81-234) U/L Urine Color (YELLOW) Urine Appearance (CLEAR) Urine pH (5.0-9.0) Ur Specific [place] (1.005-1.030) Urine Protein (NEGATIVE) Urine Glucose (UA) (NEGATIVE) Urine Ketones (NEGATIVE) Urine Occult Blood (NEGATIVE) Urine Nitrite (NEGATIVE) Urine Bilirubin (NEGATIVE) Urine Urobilinogen (0.2-1.0) mg/dL Ur Leukocyte Esterase (NEGATIVE) Ur Random Creatinine (No establ ref range) mg/dL U Random Total Protein (0.0-11.9) mg/dL Protein/Creatinin Ratio (<150.0) mg/g Blood Type A POSITIVE Gel Antibody Screen Negative Crossmatch See Detail 02/16/20 02/16/20 Range/Units 20:48 20:48 WBC (5.0-10.0) 10^3/uL RBC (4.2-5.4) 10^6/uL Hgb (12.0-16.0) g/dL Hct (37.0-47.0) % MCV (80-100) fL MCH (27.0-34.0) pg MCHC (33.0-35.0) g/dL Plt Count (150-450) 10^3/uL BUN (7-18) mg/dL Creatinine (0.55-1.02) mg/dL Est Cr Clr Drug Dosing Estimated GFR (MDRD) Uric Acid (2.6-6.0) mg/dL AST (15-37) U/L ALT (14-59) U/L Lactate Dehydrogenase (81-234) U/L Urine Color Yellow (YELLOW) Urine Appearance Slightly cloudy (CLEAR) Urine pH 6.0 (5.0-9.0) Ur Specific [place] 1.025 (1.005-1.030) Urine Protein >=300 H (NEGATIVE) Urine Glucose (UA) Negative (NEGATIVE) Urine Ketones Negative (NEGATIVE) Urine Occult Blood Small H (NEGATIVE) Urine Nitrite Negative (NEGATIVE) Urine Bilirubin Negative (NEGATIVE) Urine Urobilinogen 0.2 (0.2-1.0) mg/dL Ur Leukocyte Esterase Negative (NEGATIVE) Ur Random Creatinine 198.36 (No establ ref range) mg/dL U Random Total Protein 1719.0 H (0.0-11.9) mg/dL Protein/Creatinin Ratio 8666.1 H (<150.0) mg/g Blood Type Gel Antibody Screen Crossmatch Med Orders - Current: Current Medications Acetaminophen (Tylenol) 650 mg PO Q6H PRN PRN Reason: mild pain or fever Carboprost Tromethamine (Hemabate Ds) 250 mcg IM ASDIRECTED PRN PRN Reason: Excessive vaginal bleeding Diphenhydramine HCl (Benadryl) 25 mg IVPUSH Q6H PRN PRN Reason: Itching or Nausea Docusate Sodium (Colace) 100 mg PO Q12H PRN PRN Reason: Constipation Ephedrine Sulfate (Ephedrine Sulfate) 5 mg IVPUSH SEECOMMENT PRN PRN Reason: Other Tranexamic Acid 1,000 mg/ (Sodium Chloride) 110 mls @ 660 mls/hr IV ONETIME PRN PRN Reason: Bleeding Oxytocin/Sodium Chloride (Pitocin In Ns 30 Unit/500 Ml) 30 unit in 500 mls @ 2 mls/hr IV TITRATE NICOLA; Protocol Magnesium Sulfate/Dextrose (Magnesium Sulfate In D5w 100 Premix) 1 gm in 100 mls @ 100 mls/hr IV ONETIME ONE Stop: 02/16/20 21:59 Lactated Ringer's (Ringers, Lactated) 1,000 mls @ 125 mls/hr IV ASDIRECTED NICOLA Lactated Ringer's (Ringers, Lactated) 1,000 mls @ 500 mls/hr IV BOLUS NICOLA Lactated Ringer's (Ringers, Lactated) 1,000 mls @ 125 mls/hr IV ASDIRECTED NICOLA Magnesium Sulfate (Magnesium Sulfate In Water Premix) 20 gm in 500 mls @ 50 mls/hr IV TITRATE NICOLA Ibuprofen (Motrin) 800 mg PO Q8H PRN PRN Reason: mild pain or fever Methylergonovine Maleate (Methergine) 0.2 mg PO ONETIME PRN PRN Reason: Excessive vaginal bleeding Methylergonovine Maleate (Methergine) 0.2 mg IM ONETIME PRN PRN Reason: Excessive Vaginal Bleeding Misoprostol (Cytotec) 800 mcg RECTAL ASDIRECTED PRN PRN Reason: Excessive bleeding Naloxone HCl (Narcan) 0.1 mg IVPUSH SEECOMMENT PRN PRN Reason: Respiratory Depression Ondansetron HCl (Zofran) 4 mg IVPUSH Q4H PRN PRN Reason: Nausea/Vomiting Oxycodone/Acetaminophen (Percocet 325-5 Mg) 1 tab PO Q4H PRN PRN Reason: Pain (moderate 4-6) Oxycodone/Acetaminophen (Percocet 325-5 Mg) 2 tab PO Q4H PRN PRN Reason: Pain (moderate 4-6) Prenat Multivit/[place]/Iron/Folic Ac ( Plus Iron) 1 each PO DAILY [facility] Simethicone (Simethicone) 160 mg PO QID NICOLA Sodium Chloride (Saline Flush) 10 ml FLUSH ASDIRECTED PRN PRN Reason: Keep Vein Open Discontinued Medications Citric Acid/Sodium Citrate (Bicitra Solution) 30 ml PO ONETIME ONE Stop: 02/16/20 20:31 Citric Acid/Sodium Citrate (Bicitra Solution) Confirm Administered Dose 30 ml .ROUTE .STK-MED ONE Stop: 02/16/20 20:01 Cefazolin Sodium/Dextrose 2 gm (/ Premix) 50 mls @ 100 mls/hr IV ONETIME ONE Stop: 02/16/20 20:59 Last Admin: 02/16/20 20:29 Dose: 100 mls/hr Documented by: Magnesium Sulfate (Magnesium Sulfate In Water Premix) 4 gm in 100 mls @ 300 mls/hr IV ONETIME ONE Stop: 02/16/20 20:49 Last Admin: 02/16/20 21:21 Dose: 300 mls/hr Documented by: Magnesium Sulfate (Magnesium Sulfate In Water Premix) Confirm Administered Dose 100 mls @ as directed .ROUTE .STK-MED ONE Stop: 02/16/20 19:48 Last Admin: 02/16/20 21:22 Dose: 300 mls/hr Documented by: Oxytocin/Sodium Chloride (Pitocin In Ns 30 Unit/500 Ml) Confirm Administered Dose 60 unit in 1,000 mls @ as directed .ROUTE .STK-MED ONE Stop: 02/16/20 19:54 Magnesium Sulfate (Magnesium Sulfate In Water Premix) Confirm Administered Dose 20 gm in 500 mls @ as directed .ROUTE .STK-MED ONE Stop: 02/16/20 21:46 Labetalol HCl (Normodyne) 40 mg IVPUSH ONETIME ONE Stop: 02/16/20 20:31 Labetalol HCl (Normodyne) Confirm Administered Dose 40 mg .ROUTE .STK-MED ONE Stop: 02/16/20 19:52 Tranexamic Acid (Cyklokapron) Confirm Administered Dose 1,000 mg .ROUTE .STK-MED ONE Stop: 02/16/20 19:52 - Problem List & Annotations (1) care in third trimester SNOMED Code(s): 705873386, 51790844, 89541224, 173461671, 724300090 Code(s): Z34.93 - ENCNTR FOR SUPRVSN OF NORMAL PREG, UNSP, THIRD TRIMESTER Status: Acute (2) Pre-eclampsia in third trimester SNOMED Code(s): 320919512, 546841039 Code(s): O14.93 - UNSPECIFIED PRE-ECLAMPSIA, THIRD TRIMESTER Status: Acute (3) Vaginal bleeding, abnormal SNOMED Code(s): 829917395 Code(s): N93.9 - ABNORMAL UTERINE AND VAGINAL BLEEDING, UNSPECIFIED Status: Acute (4) Anemia affecting in third trimester SNOMED Code(s): 75132242, 41017002 Code(s): O99.013 - ANEMIA COMPLICATING , THIRD TRIMESTER Status: Acute (5) Status post delivery SNOMED Code(s): 495042222, 823443575 Code(s): Z98.891 - HISTORY OF UTERINE SCAR FROM PREVIOUS SURGERY Status: Acute (6) Placental abruption SNOMED Code(s): 397228679 Code(s): O45.90 - PREMATURE SEPARATION OF PLACENTA, UNSP, UNSP TRIMESTER Status: Acute - Problem List Review Problem List Initiated/Reviewed/Updated: Yes - My Orders Last 24 Hours: My Active Orders 02/16/20 Breakfast Clear Liquid Diet [DIET] 02/16/20 19:35 RED BLOOD CELLS LP [BBK] Urgent TYPE AND SCREEN [BBK] Urgent 02/16/20 19:43 Patient Status [ADT] Routine Non Stress Test [RC] PER UNIT ROUTINE Notify Provider Vital Signs OB [RC] ASDIRECTED Procedure Site Prep Instruct [RC] ASDIRECTED RT Incentive Spirometry [RC] ASDIRECTED Vital Signs [RC] PER UNIT ROUTINE Carboprost Tromethamine [Hemabate DS] 250 mcg IM ASDIRECTED PRN Methylergonovine [Methergine] 0.2 mg PO ONETIME PRN Sodium Chloride 0.9% [Saline Flush] 10 ml FLUSH ASDIRECTED PRN Tranexamic Acid [Cyklokapron] 1,000 mg Sodium Chloride 0.9% [Normal Saline] 100 ml IV ONETIME Peripheral IV Insertion Adult [OM.PC] Routine Schedule Procedure [COMM] Per Unit Routine Resuscitation Status Routine 02/16/20 19:44 Peripheral IV Care [RC] . DIRECTED 02/16/20 19:45 Lactated Ringers [Ringers, Lactated] 1,000 ml IV ASDIRECTED Oxytocin/Normal Saline [Pitocin in NS 30 UNIT/500 ML] 30 unit in 500 ml IV TITRATE 02/16/20 20:30 Lactated Ringers [Ringers, Lactated] 1,000 ml IV BOLUS 02/16/20 21:00 Magnesium Sulfate/D5W [Magnesium Sulfate in D5W 100 Premix] 1 gm in 100 ml IV ONETIME 02/16/20 21:47 Intake and Output [RC] Q8H Notify Provider Intake and Out [RC] ASDIRECTED Acetaminophen [TylenoL] 650 mg PO Q6H PRN Acetaminophen/oxyCODONE [Percocet 325-5 MG] 1 tab PO Q4H PRN Acetaminophen/oxyCODONE [Percocet 325-5 MG] 2 tab PO Q4H PRN Docusate Sodium [Colace] 100 mg PO Q12H PRN Ibuprofen [Motrin] 800 mg PO Q8H PRN Methylergonovine [Methergine] 0.2 mg IM ONETIME PRN Naloxone [Narcan] 0.1 mg IVPUSH SEECOMMENT PRN Ondansetron [Zofran] 4 mg IVPUSH Q4H PRN diphenhydrAMINE [Benadryl] 25 mg IVPUSH Q6H PRN ePHEDrine [ePHEDrine sulfate] 5 mg IVPUSH SEECOMMENT PRN miSOPROStoL [Cytotec] 800 mcg RECTAL ASDIRECTED PRN 02/16/20 21:48 Antiembolic Devices [RC] PER UNIT ROUTINE Bedrest [RC] ASDIRECTED Communication Order [RC] PER UNIT ROUTINE Communication Order [RC] PER UNIT ROUTINE Communication Order [RC] Per Unit Routine RT Incentive Spirometry [RC] Q2HWA Urinary Catheter Removal [RC] Per Unit Routine Vital Signs [RC] PER UNIT ROUTINE Antiembolic Hose [OM.PC] Per Unit Routine Assess Lochia [WOMSER] Per Unit Routine Assess Uterine Involution [WOMSER] Per Unit Routine Breast Pump [WOMSER] Per Unit Routine Sequential Compression Device [OM.PC] Per Unit Routine 02/16/20 22:00 Lactated Ringers @ 125 MLS/HR(1000ml) Lactated Ringers [Ringers, Lactated] 1,000 ml IV ASDIRECTED Magnesium Sulfate/Water [Magnesium Sulfate in Water Premix] 20 gm in 500 ml IV TITRATE 02/17/20 04:00 MAGNESIUM [CHEM] Q6H 02/17/20 07:00 CBC W/O DIFF,HEMOGRAM [HEME] Routine 02/17/20 09:00 Vit with Ca/FA/Iron [ Plus Iron] 1 each PO DAILY Simethicone 160 mg PO QID 02/17/20 10:00 MAGNESIUM [CHEM] Q6H 02/17/20 16:00 MAGNESIUM [CHEM] Q6H 02/17/20 22:00 MAGNESIUM [CHEM] Q6H - Assessment Assessment:: 35-year-old, now , status post emergency repeat section for severe pre-eclampsia and placental abruption at 35w1d - Plan Plan:: 1. Initiate routine postoperative cares 2. Initiate magnesium citrate therapy for severe pre-eclampsia 3. Closely monitor blood pressures 4. Repeat CBC in AM 5. Plans to breastfeed 6. Anticipate discharge 02/19/2020 Zuleima Deras MD
[2020-02-16] MEDS: Magnesium Sulfate/Water 20 GM/500 ML BAG IV SCH (22:10)
[2020-02-17] MEDS: Lactated Ringers 1,000 ML IV SCH (06:22)
[2020-02-17] MEDS: Sodium Chloride 0.9% 1,000 ML IV SCH ×2 (08:00→16:36)
[2020-02-17] MEDS: Magnesium Sulfate/Water 20 GM/500 ML BAG IV SCH ×2 (08:01→18:17)
[2020-02-17] MEDS: Prenatal Multivitamin with Calcium/Folic Acid/Iron Tab PO SCH (08:03)
[2020-02-17] MEDS: Simethicone 80 MG Tab.Chew PO SCH ×4 (08:03→21:51)
[2020-02-17] MEDS: Docusate Sodium 100 MG Cap PO PRN ×2 (08:03→21:51)
--- NOTE | 2020-02-17 09:09 | PCM.PNPP ---
- General Info Date of Service: 02/17/20 Subjective Update: POD#1. Patient is doing well. Continues on magnesium sulfate IV. Good urine output. Has not been out of bed. Tolerating a general diet. Denies fever, chills, headache, dizziness or lightheadedness. Pain is well controlled. Has attempted --latch is poor to fair but expected for 35 week baby. Did give 2 doses IV labetalol overnight. No new concerns per patient or per nursing staff. Functional Status: Reports: Pain Controlled, Tolerating Diet. Denies: Ambulating, New Symptoms - Review of Systems General: Reports: Fatigue HEENT: Reports: No Symptoms Pulmonary: Reports: No Symptoms Cardiovascular: Reports: No Symptoms Gastrointestinal: Reports: No Symptoms Genitourinary: Reports: No Symptoms Musculoskeletal: Reports: No Symptoms Skin: Reports: No Symptoms - General Info Date of Service: 02/17/20 - Patient Data Vital Signs - Most Recent: Last Vital Signs Temp 36.4 C 02/17/20 08:00 Pulse 62 02/17/20 08:00 Resp 16 02/17/20 08:00 BP 165/84 H 02/17/20 08:00 Pulse Ox 97 02/16/20 21:50 Weight - Most Recent: 156.489 kg I&O - Last 24 Hours: Intake & Output 02/16/20 02/17/20 02/17/20 22:59 06:59 14:59 Output Total 50 400 475 Balance -50 400 -627 Lab Results - Last 24 Hours: Laboratory Results - last 24 hr 02/16/20 02/16/20 02/16/20 Range/Units 19:35 19:35 19:35 WBC 10.6 H (5.0-10.0) 10^3/uL RBC 4.25 (4.2-5.4) 10^6/uL Hgb 11.8 L (12.0-16.0) g/dL Hct 36.0 L (37.0-47.0) % MCV 84.7 (80-100) fL MCH 27.8 (27.0-34.0) pg MCHC 32.8 L (33.0-35.0) g/dL Plt Count 248 (150-450) 10^3/uL BUN 11 (7-18) mg/dL Creatinine 1.02 (0.55-1.02) mg/dL Est Cr Clr Drug Dosing TNP Estimated GFR (MDRD) > 60 Uric Acid 7.4 H (2.6-6.0) mg/dL Magnesium (1.8-2.4) mg/dL AST 22 (15-37) U/L ALT 18 (14-59) U/L Lactate Dehydrogenase 248 H (81-234) U/L Urine Color (YELLOW) Urine Appearance (CLEAR) Urine pH (5.0-9.0) Ur Specific Waterflow (1.005-1.030) Urine Protein (NEGATIVE) Urine Glucose (UA) (NEGATIVE) Urine Ketones (NEGATIVE) Urine Occult Blood (NEGATIVE) Urine Nitrite (NEGATIVE) Urine Bilirubin (NEGATIVE) Urine Urobilinogen (0.2-1.0) mg/dL Ur Leukocyte Esterase (NEGATIVE) Ur Random Creatinine (No establ ref range) mg/dL U Random Total Protein (0.0-11.9) mg/dL Protein/Creatinin Ratio (<150.0) mg/g Blood Type A POSITIVE Gel Antibody Screen Negative Crossmatch See Detail 02/16/20 02/16/20 02/17/20 Range/Units 20:48 20:48 04:00 WBC (5.0-10.0) 10^3/uL RBC (4.2-5.4) 10^6/uL Hgb (12.0-16.0) g/dL Hct (37.0-47.0) % MCV (80-100) fL MCH (27.0-34.0) pg MCHC (33.0-35.0) g/dL Plt Count (150-450) 10^3/uL BUN (7-18) mg/dL Creatinine (0.55-1.02) mg/dL Est Cr Clr Drug Dosing Estimated GFR (MDRD) Uric Acid (2.6-6.0) mg/dL Magnesium 4.4 H (1.8-2.4) mg/dL AST (15-37) U/L ALT (14-59) U/L Lactate Dehydrogenase (81-234) U/L Urine Color Yellow (YELLOW) Urine Appearance Slightly cloudy (CLEAR) Urine pH 6.0 (5.0-9.0) Ur Specific Waterflow 1.025 (1.005-1.030) Urine Protein >=300 H (NEGATIVE) Urine Glucose (UA) Negative (NEGATIVE) Urine Ketones Negative (NEGATIVE) Urine Occult Blood Small H (NEGATIVE) Urine Nitrite Negative (NEGATIVE) Urine Bilirubin Negative (NEGATIVE) Urine Urobilinogen 0.2 (0.2-1.0) mg/dL Ur Leukocyte Esterase Negative (NEGATIVE) Ur Random Creatinine 198.36 (No establ ref range) mg/dL U Random Total Protein 1719.0 H (0.0-11.9) mg/dL Protein/Creatinin Ratio 8666.1 H (<150.0) mg/g Blood Type Gel Antibody Screen Crossmatch Med Orders - Current: Current Medications Acetaminophen (Tylenol) 650 mg PO Q6H PRN PRN Reason: mild pain or fever Carboprost Tromethamine (Hemabate Ds) 250 mcg IM ASDIRECTED PRN PRN Reason: Excessive vaginal bleeding Diphenhydramine HCl (Benadryl) 25 mg IVPUSH Q6H PRN PRN Reason: Itching or Nausea Docusate Sodium (Colace) 100 mg PO Q12H PRN PRN Reason: Constipation Last Admin: 02/17/20 08:03 Dose: 100 mg Documented by: Ephedrine Sulfate (Ephedrine Sulfate) 5 mg IVPUSH SEECOMMENT PRN PRN Reason: Other Tranexamic Acid 1,000 mg/ (Sodium Chloride) 110 mls @ 660 mls/hr IV ONETIME PRN PRN Reason: Bleeding Oxytocin/Sodium Chloride (Pitocin In Ns 30 Unit/500 Ml) 30 unit in 500 mls @ 2 mls/hr IV TITRATE [facility]; Protocol Last Titration: 02/17/20 00:30 Dose: 0 munits/min, 0 mls/hr Documented by: Lactated Ringer's (Ringers, Lactated) 1,000 mls @ 125 mls/hr IV ASDIRECTED [facility] Last Admin: 02/17/20 06:22 Dose: 125 mls/hr Documented by: Lactated Ringer's (Ringers, Lactated) 1,000 mls @ 500 mls/hr IV BOLUS NICOLA Lactated Ringer's (Ringers, Lactated) 1,000 mls @ 125 mls/hr IV ASDIRECTED [facility] Magnesium Sulfate (Magnesium Sulfate In Water Premix) 20 gm in 500 mls @ 50 mls/hr IV TITRATE [facility] Last Admin: 02/17/20 08:01 Dose: 50 mls/hr Documented by: Ibuprofen (Motrin) 800 mg PO Q8H PRN PRN Reason: mild pain or fever Methylergonovine Maleate (Methergine) 0.2 mg PO ONETIME PRN PRN Reason: Excessive vaginal bleeding Methylergonovine Maleate (Methergine) 0.2 mg IM ONETIME PRN PRN Reason: Excessive Vaginal Bleeding Misoprostol (Cytotec) 800 mcg RECTAL ASDIRECTED PRN PRN Reason: Excessive bleeding Naloxone HCl (Narcan) 0.1 mg IVPUSH SEECOMMENT PRN PRN Reason: Respiratory Depression Ondansetron HCl (Zofran) 4 mg IVPUSH Q4H PRN PRN Reason: Nausea/Vomiting Oxycodone/Acetaminophen (Percocet 325-5 Mg) 1 tab PO Q4H PRN PRN Reason: Pain (moderate 4-6) Oxycodone/Acetaminophen (Percocet 325-5 Mg) 2 tab PO Q4H PRN PRN Reason: Pain (moderate 4-6) Prenat Multivit/[place]/Iron/Folic Ac ( Plus Iron) 1 each PO DAILY [facility] Last Admin: 02/17/20 08:03 Dose: 1 each Documented by: Simethicone (Simethicone) 160 mg PO QID [facility] Last Admin: 02/17/20 08:03 Dose: 160 mg Documented by: Sodium Chloride (Saline Flush) 10 ml FLUSH ASDIRECTED PRN PRN Reason: Keep Vein Open Discontinued Medications Citric Acid/Sodium Citrate (Bicitra Solution) 30 ml PO ONETIME ONE Stop: 02/16/20 20:31 Last Admin: 02/16/20 20:30 Dose: 30 ml Documented by: Citric Acid/Sodium Citrate (Bicitra Solution) Confirm Administered Dose 30 ml .ROUTE .STK-MED ONE Stop: 02/16/20 20:01 Last Admin: 02/17/20 06:17 Dose: Not Given Documented by: Cefazolin Sodium/Dextrose 2 gm (/ Premix) 50 mls @ 100 mls/hr IV ONETIME ONE Stop: 02/16/20 20:59 Last Admin: 02/16/20 20:29 Dose: 100 mls/hr Documented by: Magnesium Sulfate (Magnesium Sulfate In Water Premix) 4 gm in 100 mls @ 300 mls/hr IV ONETIME ONE Stop: 02/16/20 20:49 Last Admin: 02/16/20 21:21 Dose: 300 mls/hr Documented by: Magnesium Sulfate/Dextrose (Magnesium Sulfate In D5w 100 Premix) 1 gm in 100 mls @ 100 mls/hr IV ONETIME ONE Stop: 02/16/20 21:59 Last Admin: 02/17/20 06:17 Dose: Not Given Documented by: Magnesium Sulfate (Magnesium Sulfate In Water Premix) Confirm Administered Dose 100 mls @ as directed .ROUTE .STK-MED ONE Stop: 02/16/20 19:48 Last Admin: 02/16/20 21:22 Dose: 300 mls/hr Documented by: Oxytocin/Sodium Chloride (Pitocin In Ns 30 Unit/500 Ml) Confirm Administered Dose 60 unit in 1,000 mls @ as directed .ROUTE .STK-MED ONE Stop: 02/16/20 19:54 Magnesium Sulfate (Magnesium Sulfate In Water Premix) Confirm Administered Dose 20 gm in 500 mls @ as directed .ROUTE .STK-MED ONE Stop: 02/16/20 21:46 Last Admin: 02/17/20 06:17 Dose: Not Given Documented by: Labetalol HCl (Normodyne) 40 mg IVPUSH ONETIME ONE Stop: 02/16/20 20:31 Last Admin: 02/16/20 23:42 Dose: 40 mg Documented by: Labetalol HCl (Normodyne) Confirm Administered Dose 40 mg .ROUTE .STK-MED ONE Stop: 02/16/20 19:52 Last Admin: 02/17/20 06:17 Dose: Not Given Documented by: Tranexamic Acid (Cyklokapron) Confirm Administered Dose 1,000 mg .ROUTE .STK-MED ONE Stop: 02/16/20 19:52 Last Admin: 02/17/20 06:17 Dose: Not Given Documented by: - Infant Interaction Disposition, : at Bedside Infant Interaction: Holding Infant Feeding: Attempted ; Nursed Fair/Poor Support Person: - Recovery Exam Fundal Tone: Firm Fundal Level: At Umbilicus Fundal Placement: Midline Lochia Amount: Small Lochia Color: Rubra/Red Perineum Description: Intact, Minimal Bruising/Swelling Episiotomy/Laceration: None Bladder Status: Nonpalpable, Indwelling Catheter in Place Urinary Elimination: Indwelling Catheter - Exam General: Alert, Oriented HEENT: Pupils Equal, Pupils Reactive Lungs: Clear to Auscultation, Normal Respiratory Effort Cardiovascular: Regular Rate, Regular Rhythm, No Murmurs Extremities: Pedal Edema (2+ bilaterally) Skin: Warm, Dry, Intact Wound/Incisions: Dressing Dry and Intact Neurological: No New Focal Deficit Psy/Mental Status: Alert, Normal Affect, Normal Mood - Problem List & Annotations (1) care in third trimester SNOMED Code(s): 612339794, 87284921, 09645859, 408651465, 091530740 Code(s): Z34.93 - ENCNTR FOR SUPRVSN OF NORMAL PREG, UNSP, THIRD TRIMESTER Status: Acute (2) Pre-eclampsia in third trimester SNOMED Code(s): 726248093, 607181377 Code(s): O14.93 - UNSPECIFIED PRE-ECLAMPSIA, THIRD TRIMESTER Status: Acute (3) Vaginal bleeding, abnormal SNOMED Code(s): 861478463 Code(s): N93.9 - ABNORMAL UTERINE AND VAGINAL BLEEDING, UNSPECIFIED Status: Acute (4) Anemia affecting in third trimester SNOMED Code(s): 64899321, 28594940 Code(s): O99.013 - ANEMIA COMPLICATING , THIRD TRIMESTER Status: Acute (5) Placental abruption SNOMED Code(s): 217515107 Code(s): O45.90 - PREMATURE SEPARATION OF PLACENTA, UNSP, UNSP TRIMESTER Status: Acute (6) Status post delivery SNOMED Code(s): 308784973, 068965980 Code(s): Z98.891 - HISTORY OF UTERINE SCAR FROM PREVIOUS SURGERY Status: Acute - Problem List Review Problem List Initiated/Reviewed/Updated: Yes - My Orders Last 24 Hours: My Active Orders 02/16/20 19:35 RED BLOOD CELLS LP [BBK] Urgent TYPE AND SCREEN [BBK] Urgent 02/16/20 19:43 Patient Status [ADT] Routine Notify Provider Vital Signs OB [RC] ASDIRECTED Vital Signs [RC] 04,08,12,16,20,00 Carboprost Tromethamine [Hemabate DS] 250 mcg IM ASDIRECTED PRN Methylergonovine [Methergine] 0.2 mg PO ONETIME PRN Sodium Chloride 0.9% [Saline Flush] 10 ml FLUSH ASDIRECTED PRN Tranexamic Acid [Cyklokapron] 1,000 mg Sodium Chloride 0.9% [Normal Saline] 100 ml IV ONETIME Peripheral IV Insertion Adult [OM.PC] Routine Schedule Procedure [COMM] Per Unit Routine Resuscitation Status Routine 02/16/20 19:45 Lactated Ringers [Ringers, Lactated] 1,000 ml IV ASDIRECTED Oxytocin/Normal Saline [Pitocin in NS 30 UNIT/500 ML] 30 unit in 500 ml IV TITRATE 02/16/20 20:30 Lactated Ringers [Ringers, Lactated] 1,000 ml IV BOLUS 02/16/20 21:47 Intake and Output [RC] Q2H Notify Provider Intake and Out [RC] ASDIRECTED Acetaminophen [TylenoL] 650 mg PO Q6H PRN Acetaminophen/oxyCODONE [Percocet 325-5 MG] 1 tab PO Q4H PRN Acetaminophen/oxyCODONE [Percocet 325-5 MG] 2 tab PO Q4H PRN Docusate Sodium [Colace] 100 mg PO Q12H PRN Ibuprofen [Motrin] 800 mg PO Q8H PRN Methylergonovine [Methergine] 0.2 mg IM ONETIME PRN Naloxone [Narcan] 0.1 mg IVPUSH SEECOMMENT PRN Ondansetron [Zofran] 4 mg IVPUSH Q4H PRN diphenhydrAMINE [Benadryl] 25 mg IVPUSH Q6H PRN ePHEDrine [ePHEDrine sulfate] 5 mg IVPUSH SEECOMMENT PRN miSOPROStoL [Cytotec] 800 mcg RECTAL ASDIRECTED PRN 02/16/20 21:48 Antiembolic Devices [RC] 08,20 Bedrest [RC] ASDIRECTED Communication Order [RC] PER UNIT ROUTINE Communication Order [RC] PER UNIT ROUTINE Communication Order [RC] Per Unit Routine RT Incentive Spirometry [RC] Q2HWA Urinary Catheter Removal [RC] Per Unit Routine Antiembolic Hose [OM.PC] Per Unit Routine Assess Lochia [WOMSER] Per Unit Routine Assess Uterine Involution [WOMSER] Per Unit Routine Breast Pump [WOMSER] Per Unit Routine Sequential Compression Device [OM.PC] Per Unit Routine 02/16/20 22:00 Lactated Ringers [Ringers, Lactated] 1,000 ml IV ASDIRECTED Magnesium Sulfate/Water [Magnesium Sulfate in Water Premix] 20 gm in 500 ml IV TITRATE 02/16/20 23:45 Communication Order [RC] PER UNIT ROUTINE 02/17/20 07:00 CBC W/O DIFF,HEMOGRAM [HEME] Routine 02/17/20 09:00 Vit with Ca/FA/Iron [ Plus Iron] 1 each PO DAILY Simethicone 160 mg PO QID 02/17/20 09:08 Ketorolac [Toradol] 30 mg IVPUSH Q8H PRN 02/17/20 10:00 MAGNESIUM [CHEM] Q6H 02/17/20 14:00 Labetalol [Normodyne] 200 mg PO TID 02/17/20 16:00 MAGNESIUM [CHEM] Q6H 02/17/20 22:00 MAGNESIUM [CHEM] Q6H - Assessment Assessment:: 34-year-old now POD#1 status post emergent section at 35w1d - Plan Plan:: 1. Continue routine postoperative cares 2. Start ferrous sulfate 325 mg BID for acute blood loss anemia 3. Start labetalol 200 mg TID orally for persistently elevated blood pressures 4. Continue magnesium sulfate until 24 hours post-delivery 5. Continue to work on breast feeding 6. Anticipate discharge 02/19/2020 Zuleima Deras MD
[2020-02-17] MEDS: Ketorolac 30 MG/ML SDV IVPUSH PRN ×2 (09:37→21:51)
[2020-02-17] MEDS: Sodium Chloride 0.9% 10 ML Syringe FLUSH PRN (09:47)
[2020-02-17] MEDS ORDERED: Labetalol 100 MG Tab ONE (09:48)
[2020-02-17] MEDS: Labetalol 100 MG Tab PO SCH ×3 (09:49→21:51)
[2020-02-18] MEDS: Ibuprofen 800 MG Tab PO PRN ×3 (05:37→21:54)
[2020-02-18] MEDS: Labetalol 100 MG Tab PO SCH ×3 (08:29→21:55)
[2020-02-18] MEDS: Prenatal Multivitamin with Calcium/Folic Acid/Iron Tab PO SCH (08:30)
[2020-02-18] MEDS: Simethicone 80 MG Tab.Chew PO SCH ×4 (08:30→21:50)
[2020-02-18] MEDS: Docusate Sodium 100 MG Cap PO PRN (08:30)
--- NOTE | 2020-02-18 13:43 | PCM.PNPP ---
- General Info Date of Service: 02/18/20 (Post-Op day #2) Admission Dx/Problem (Free Text): Patient Status Order with Admit Dx/Problem 02/16/20 19:43 Patient Status [ADT] Routine Admission Diagnosis/Problem Admission Diagnosis/Problem care Emergent RCS for PIH/bleeding/placenta abruption @ 35w1d Subjective Update: Jen is doing well on POD #2 s/p emergent RCS for vaginal bleeding and severe pre-E with placenta abruption. COVID positive. her anesthesia resolved, Irvin out and voiding well, eating well. Denies respitatory sx. no fever. no new concerns. nursing baby with shield and also using some formula supplementation. passing flatus and has had multiple BMs. has increased edema staff has noticed BP elevated this morning. Functional Status: Reports: Pain Controlled, Tolerating Diet, Ambulating, Urinating, Other (passing flatus, and has had BM X 2) - Review of Systems General: Reports: No Symptoms, Other (tired today) HEENT: Reports: No Symptoms Pulmonary: Reports: No Symptoms Cardiovascular: Reports: Edema Gastrointestinal: Reports: No Symptoms Genitourinary: Reports: No Symptoms Musculoskeletal: Reports: No Symptoms Skin: Reports: No Symptoms Neurological: Reports: No Symptoms Psychiatric: Reports: No Symptoms - General Info Date of Service: 02/18/20 (POD #2) - Patient Data Vital Signs - Most Recent: Last Vital Signs Temp 97.0 F 02/18/20 08:17 Pulse 61 02/18/20 10:55 Resp 18 02/18/20 08:17 BP 150/67 H 02/18/20 10:55 Pulse Ox 97 02/16/20 21:50 Weight - Most Recent: 345 lb I&O - Last 24 Hours: Intake & Output 02/17/20 02/18/20 02/18/20 23:59 06:59 14:59 Intake Total Output Total Balance Lab Results - Last 24 Hours: Laboratory Results - last 24 hr 02/17/20 Range/Units 16:19 Magnesium 5.9 H (1.8-2.4) mg/dL Med Orders - Current: Current Medications Acetaminophen (Tylenol) 650 mg PO Q6H PRN PRN Reason: mild pain or fever Carboprost Tromethamine (Hemabate Ds) 250 mcg IM ASDIRECTED PRN PRN Reason: Excessive vaginal bleeding Diphenhydramine HCl (Benadryl) 25 mg IVPUSH Q6H PRN PRN Reason: Itching or Nausea Docusate Sodium (Colace) 100 mg PO Q12H PRN PRN Reason: Constipation Last Admin: 02/18/20 08:30 Dose: 100 mg Documented by: Ephedrine Sulfate (Ephedrine Sulfate) 5 mg IVPUSH SEECOMMENT PRN PRN Reason: Other Tranexamic Acid 1,000 mg/ (Sodium Chloride) 110 mls @ 660 mls/hr IV ONETIME PRN PRN Reason: Bleeding Oxytocin/Sodium Chloride (Pitocin In Ns 30 Unit/500 Ml) 30 unit in 500 mls @ 2 mls/hr IV TITRATE [facility]; Protocol Last Titration: 02/17/20 00:30 Dose: 0 munits/min, 0 mls/hr Documented by: Lactated Ringer's (Ringers, Lactated) 1,000 mls @ 125 mls/hr IV ASDIRECTED [facility] Last Admin: 02/17/20 06:22 Dose: 125 mls/hr Documented by: Lactated Ringer's (Ringers, Lactated) 1,000 mls @ 500 mls/hr IV BOLUS NICOLA Lactated Ringer's (Ringers, Lactated) 1,000 mls @ 125 mls/hr IV ASDIRECTED [facility] Magnesium Sulfate (Magnesium Sulfate In Water Premix) 20 gm in 500 mls @ 50 mls/hr IV TITRATE [facility] Last Admin: 02/17/20 18:17 Dose: 50 mls/hr Documented by: Sodium Chloride (Normal Saline) 1,000 mls @ 75 mls/hr IV ASDIRECTED [facility] Last Admin: 02/17/20 16:36 Dose: 75 mls/hr Documented by: Ibuprofen (Motrin) 800 mg PO Q8H PRN PRN Reason: mild pain or fever Last Admin: 02/18/20 05:37 Dose: 800 mg Documented by: Ketorolac Tromethamine (Toradol) 30 mg IVPUSH Q8H PRN PRN Reason: Pain (mild 1-3) Stop: 02/22/20 09:08 Last Admin: 02/17/20 21:51 Dose: 30 mg Documented by: Labetalol HCl (Normodyne) 200 mg PO TID [facility] Last Admin: 02/18/20 08:29 Dose: 200 mg Documented by: Methylergonovine Maleate (Methergine) 0.2 mg PO ONETIME PRN PRN Reason: Excessive vaginal bleeding Methylergonovine Maleate (Methergine) 0.2 mg IM ONETIME PRN PRN Reason: Excessive Vaginal Bleeding Misoprostol (Cytotec) 800 mcg RECTAL ASDIRECTED PRN PRN Reason: Excessive bleeding Naloxone HCl (Narcan) 0.1 mg IVPUSH SEECOMMENT PRN PRN Reason: Respiratory Depression Ondansetron HCl (Zofran) 4 mg IVPUSH Q4H PRN PRN Reason: Nausea/Vomiting Oxycodone/Acetaminophen (Percocet 325-5 Mg) 1 tab PO Q4H PRN PRN Reason: Pain (moderate 4-6) Oxycodone/Acetaminophen (Percocet 325-5 Mg) 2 tab PO Q4H PRN PRN Reason: Pain (moderate 4-6) Prenat Multivit/[place]/Iron/Folic Ac ( Plus Iron) 1 each PO DAILY [facility] Last Admin: 02/18/20 08:30 Dose: 1 each Documented by: Simethicone (Simethicone) 160 mg PO QID [facility] Last Admin: 02/18/20 08:30 Dose: 160 mg Documented by: Sodium Chloride (Saline Flush) 10 ml FLUSH ASDIRECTED PRN PRN Reason: Keep Vein Open Last Admin: 02/17/20 09:47 Dose: 10 ml Documented by: Discontinued Medications Citric Acid/Sodium Citrate (Bicitra Solution) 30 ml PO ONETIME ONE Stop: 02/16/20 20:31 Last Admin: 02/16/20 20:30 Dose: 30 ml Documented by: Citric Acid/Sodium Citrate (Bicitra Solution) Confirm Administered Dose 30 ml .ROUTE .STK-MED ONE Stop: 02/16/20 20:01 Last Admin: 02/17/20 06:17 Dose: Not Given Documented by: Cefazolin Sodium/Dextrose 2 gm (/ Premix) 50 mls @ 100 mls/hr IV ONETIME ONE Stop: 02/16/20 20:59 Last Admin: 02/16/20 20:29 Dose: 100 mls/hr Documented by: Magnesium Sulfate (Magnesium Sulfate In Water Premix) 4 gm in 100 mls @ 300 mls/hr IV ONETIME ONE Stop: 02/16/20 20:49 Last Admin: 02/16/20 21:21 Dose: 300 mls/hr Documented by: Magnesium Sulfate/Dextrose (Magnesium Sulfate In D5w 100 Premix) 1 gm in 100 mls @ 100 mls/hr IV ONETIME ONE Stop: 02/16/20 21:59 Last Admin: 02/17/20 06:17 Dose: Not Given Documented by: Magnesium Sulfate (Magnesium Sulfate In Water Premix) Confirm Administered Dose 100 mls @ as directed .ROUTE .STK-MED ONE Stop: 02/16/20 19:48 Last Admin: 02/16/20 21:22 Dose: 300 mls/hr Documented by: Oxytocin/Sodium Chloride (Pitocin In Ns 30 Unit/500 Ml) Confirm Administered Dose 60 unit in 1,000 mls @ as directed .ROUTE .STK-MED ONE Stop: 02/16/20 19:54 Magnesium Sulfate (Magnesium Sulfate In Water Premix) Confirm Administered Dose 20 gm in 500 mls @ as directed .ROUTE .STK-MED ONE Stop: 02/16/20 21:46 Last Admin: 02/17/20 06:17 Dose: Not Given Documented by: Labetalol HCl (Normodyne) 40 mg IVPUSH ONETIME ONE Stop: 02/16/20 20:31 Last Admin: 02/16/20 23:42 Dose: 40 mg Documented by: Labetalol HCl (Normodyne) Confirm Administered Dose 40 mg .ROUTE .STK-MED ONE Stop: 02/16/20 19:52 Last Admin: 02/17/20 06:17 Dose: Not Given Documented by: Labetalol HCl (Normodyne) Confirm Administered Dose 200 mg .ROUTE .STK-MED ONE Stop: 02/17/20 09:49 Last Admin: 02/17/20 09:51 Dose: Not Given Documented by: Tranexamic Acid (Cyklokapron) Confirm Administered Dose 1,000 mg .ROUTE .STK-MED ONE Stop: 02/16/20 19:52 Last Admin: 02/17/20 06:17 Dose: Not Given Documented by: - Infant Interaction Disposition, : in Room with Family Infant Interaction: Holding Other Interaction: dad here with mom, in room due to COVID status Feeding: Continues to Breastfeed, Other (see below) (using shield and tube to supplement, did have some formula by bottle supplementation) Support Person: - Recovery Exam Fundal Tone: Firm Fundal Level: At Umbilicus Fundal Placement: Right Lochia Amount: Small Lochia Color: Rubra/Red Perineum Description: Intact, Minimal Bruising/Swelling Episiotomy/Laceration: None Bladder Status: Palpable Urinary Elimination: Voided - Exam General: Alert, Oriented, Cooperative, No Acute Distress HEENT: Pupils Equal, Pupils Reactive, EOMI, Other (mask in place. ) Neck: Supple Lungs: Clear to Auscultation, Normal Respiratory Effort Cardiovascular: Regular Rate, Regular Rhythm, No Murmurs GI/Abdominal Exam: Normal Bowel Sounds, Soft, Mass (fundus palpable, nontender. ) Extremities: Non-Tender, Normal Capillary Refill, Pedal Edema Skin: Warm, Dry, Intact Wound/Incisions: Healing Well, Dressing Dry and Intact, No Drainage Neurological: No New Focal Deficit Psy/Mental Status: Alert, Normal Affect, Normal Mood - Problem List Review Problem List Initiated/Reviewed/Updated: Yes - Assessment Assessment:: POD #2 35w1d high risk gestation, s/p emergency repeat for placenta abruption and pre-Eclampsia BP ok on labetalol 200mg TID increased peripheral edema today bowel and bladder function resumed anesthesia resolved labs normalizing - Plan Plan:: Plan: repeat PIH labs in AM tomorrow will change labetalol to q8 hours instead of TID will give lasix 20mg BID today monitor BP and add or increase BP meds if/as indicated anticipate possible discharge Wednesday with recheck in clinic with Dr. Deras further management pending her clinical course and response to intervention. continue COVID precautions hmb Addendum: is diuresing nicely BP has been controlled today. willcontinue with plan. anticipate likely discharge Wednesday02-20-2020 and follow up with Dr. Deras in the clinic 02-21 if doing well. further management pending her clinical course hmb
[2020-02-18] MEDS ORDERED: Furosemide 20 MG/2 ML VIAL IVPUSH SCH (14:00)
[2020-02-18] MEDS: Sodium Chloride 0.9% 10 ML Syringe FLUSH PRN ×2 (14:26→14:34)
[2020-02-18] MEDS: Furosemide 20 MG/2 ML VIAL IVPUSH SCH (22:14)
[2020-02-19] MEDS: Ibuprofen 800 MG Tab PO PRN ×2 (06:24→18:29)
[2020-02-19] MEDS: Labetalol 100 MG Tab PO SCH ×3 (06:24→22:04)
[2020-02-19 07:22] LABS: CHLORIDE,CL 104 mmol/L (98-107); SODIUM,NA 140 mmol/L (136-145)
[2020-02-19] MEDS: Prenatal Multivitamin with Calcium/Folic Acid/Iron Tab PO SCH (08:04)
[2020-02-19] MEDS: Simethicone 80 MG Tab.Chew PO SCH ×4 (08:04→22:05)
[2020-02-19] MEDS: Furosemide 20 MG/2 ML VIAL IVPUSH SCH ×2 (08:05→13:19)
[2020-02-19] MEDS: Docusate Sodium 100 MG Cap PO PRN (08:05)
--- NOTE | 2020-02-19 17:30 | PCM.PNPP ---
- General Info Date of Service: 02/19/20 (POD #3) Functional Status: Reports: Pain Controlled, Tolerating Diet, Ambulating, Urinating (diuresing markedly with IV lasix) - Patient Data Vital Signs - Most Recent: Last Vital Signs Temp 98.9 F 02/19/20 16:00 Pulse 87 02/19/20 16:00 Resp 18 02/19/20 16:00 BP 140/86 02/19/20 16:00 Pulse Ox 99 02/19/20 16:00 Weight - Most Recent: 345 lb I&O - Last 24 Hours: Intake & Output 02/19/20 02/19/20 02/19/20 06:59 14:59 22:59 Output Total 1700 500 Balance -1700 -500 Lab Results - Last 24 Hours: Laboratory Results - last 24 hr 02/16/20 02/16/20 02/19/20 Range/Units 19:35 20:48 05:00 WBC (5.0-10.0) 10^3/uL RBC (4.2-5.4) 10^6/uL Hgb (12.0-16.0) g/dL Hct (37.0-47.0) % MCV (80-100) fL MCH (27.0-34.0) pg MCHC (33.0-35.0) g/dL Plt Count (150-450) 10^3/uL Sodium (136-145) mmol/L Potassium (3.5-5.1) mmol/L Chloride (98-107) mmol/L Carbon Dioxide (21-32) mmol/L Anion Gap (7-13) mEq/L BUN (7-18) mg/dL Creatinine (0.55-1.02) mg/dL Est Cr Clr Drug Dosing mL/min Estimated GFR (MDRD) BUN/Creatinine Ratio (No establ ref range) Glucose (74-99) mg/dL Uric Acid (2.6-6.0) mg/dL Calcium (8.5-10.1) mg/dL Total Bilirubin (0.2-1.0) mg/dL AST (15-37) U/L ALT (14-59) U/L Alkaline Phosphatase (46-116) U/L Total Protein (6.4-8.2) g/dL Albumin (3.4-5.0) g/dL Globulin Albumin/Globulin Ratio Urine Color Yellow (YELLOW) Urine Appearance Slightly cloudy (CLEAR) Urine pH 7.0 (5.0-9.0) Ur Specific [place] 1.020 (1.005-1.030) Urine Protein 30 H (NEGATIVE) Urine Glucose (UA) Negative (NEGATIVE) Urine Ketones Negative (NEGATIVE) Urine Occult Blood Large H (NEGATIVE) Urine Nitrite Negative (NEGATIVE) Urine Bilirubin Negative (NEGATIVE) Urine Urobilinogen 0.2 (0.2-1.0) mg/dL Ur Leukocyte Esterase Trace H (NEGATIVE) Ur Random Creatinine (No establ ref range) mg/dL U Random Total Protein > 250.0 H (0.0-11.9) mg/dL Protein/Creatinin Ratio Medical Dir Crossmatch See Detail 02/19/20 02/19/20 02/19/20 Range/Units 05:00 06:15 06:15 WBC 6.0 (5.0-10.0) 10^3/uL RBC 3.01 L (4.2-5.4) 10^6/uL Hgb 8.4 L D (12.0-16.0) g/dL Hct 26.9 L (37.0-47.0) % MCV 89.4 (80-100) fL MCH 27.9 (27.0-34.0) pg MCHC 31.2 L (33.0-35.0) g/dL Plt Count 184 (150-450) 10^3/uL Sodium 140 (136-145) mmol/L Potassium 4.0 (3.5-5.1) mmol/L Chloride 104 (98-107) mmol/L Carbon Dioxide 26 (21-32) mmol/L Anion Gap 14.0 H (7-13) mEq/L BUN 6 L (7-18) mg/dL Creatinine 0.80 (0.55-1.02) mg/dL Est Cr Clr Drug Dosing 85.56 mL/min Estimated GFR (MDRD) > 60 BUN/Creatinine Ratio 7.5 (No establ ref range) Glucose 75 (74-99) mg/dL Uric Acid 8.6 H (2.6-6.0) mg/dL Calcium 9.0 (8.5-10.1) mg/dL Total Bilirubin 0.2 (0.2-1.0) mg/dL AST 16 (15-37) U/L ALT 16 (14-59) U/L Alkaline Phosphatase 100 (46-116) U/L Total Protein 5.5 L (6.4-8.2) g/dL Albumin 2.0 L (3.4-5.0) g/dL Globulin 3.5 Albumin/Globulin Ratio 0.57 Urine Color (YELLOW) Urine Appearance (CLEAR) Urine pH (5.0-9.0) Ur Specific [place] (1.005-1.030) Urine Protein (NEGATIVE) Urine Glucose (UA) (NEGATIVE) Urine Ketones (NEGATIVE) Urine Occult Blood (NEGATIVE) Urine Nitrite (NEGATIVE) Urine Bilirubin (NEGATIVE) Urine Urobilinogen (0.2-1.0) mg/dL Ur Leukocyte Esterase (NEGATIVE) Ur Random Creatinine 17.43 (No establ ref range) mg/dL U Random Total Protein 27.8 H (0.0-11.9) mg/dL Protein/Creatinin Ratio 1595.0 H Crossmatch Med Orders - Current: Current Medications Acetaminophen (Tylenol) 650 mg PO Q6H PRN PRN Reason: mild pain or fever Carboprost Tromethamine (Hemabate Ds) 250 mcg IM ASDIRECTED PRN PRN Reason: Excessive vaginal bleeding Diphenhydramine HCl (Benadryl) 25 mg IVPUSH Q6H PRN PRN Reason: Itching or Nausea Docusate Sodium (Colace) 100 mg PO Q12H PRN PRN Reason: Constipation Last Admin: 02/19/20 08:05 Dose: 100 mg Documented by: Ephedrine Sulfate (Ephedrine Sulfate) 5 mg IVPUSH SEECOMMENT PRN PRN Reason: Other Furosemide (Lasix) 20 mg IVPUSH BIDDIURETIC NICOLA Last Admin: 02/19/20 13:19 Dose: 20 mg Documented by: Tranexamic Acid 1,000 mg/ (Sodium Chloride) 110 mls @ 660 mls/hr IV ONETIME PRN PRN Reason: Bleeding Oxytocin/Sodium Chloride (Pitocin In Ns 30 Unit/500 Ml) 30 unit in 500 mls @ 2 mls/hr IV TITRATE NICOLA; Protocol Last Titration: 02/17/20 00:30 Dose: 0 munits/min, 0 mls/hr Documented by: Lactated Ringer's (Ringers, Lactated) 1,000 mls @ 125 mls/hr IV ASDIRECTED [facility] Last Admin: 02/17/20 06:22 Dose: 125 mls/hr Documented by: Lactated Ringer's (Ringers, Lactated) 1,000 mls @ 500 mls/hr IV BOLUS NICOLA Lactated Ringer's (Ringers, Lactated) 1,000 mls @ 125 mls/hr IV ASDIRECTED [facility] Magnesium Sulfate (Magnesium Sulfate In Water Premix) 20 gm in 500 mls @ 50 mls/hr IV TITRATE [facility] Last Admin: 02/17/20 18:17 Dose: 50 mls/hr Documented by: Sodium Chloride (Normal Saline) 1,000 mls @ 75 mls/hr IV ASDIRECTED [facility] Last Admin: 02/17/20 16:36 Dose: 75 mls/hr Documented by: Ibuprofen (Motrin) 800 mg PO Q8H PRN PRN Reason: mild pain or fever Last Admin: 02/19/20 06:24 Dose: 800 mg Documented by: Ketorolac Tromethamine (Toradol) 30 mg IVPUSH Q8H PRN PRN Reason: Pain (mild 1-3) Stop: 02/22/20 09:08 Last Admin: 02/17/20 21:51 Dose: 30 mg Documented by: Labetalol HCl (Normodyne) 200 mg PO Q8HR [facility] Last Admin: 02/19/20 13:18 Dose: 200 mg Documented by: Methylergonovine Maleate (Methergine) 0.2 mg PO ONETIME PRN PRN Reason: Excessive vaginal bleeding Methylergonovine Maleate (Methergine) 0.2 mg IM ONETIME PRN PRN Reason: Excessive Vaginal Bleeding Misoprostol (Cytotec) 800 mcg RECTAL ASDIRECTED PRN PRN Reason: Excessive bleeding Naloxone HCl (Narcan) 0.1 mg IVPUSH SEECOMMENT PRN PRN Reason: Respiratory Depression Ondansetron HCl (Zofran) 4 mg IVPUSH Q4H PRN PRN Reason: Nausea/Vomiting Oxycodone/Acetaminophen (Percocet 325-5 Mg) 1 tab PO Q4H PRN PRN Reason: Pain (moderate 4-6) Oxycodone/Acetaminophen (Percocet 325-5 Mg) 2 tab PO Q4H PRN PRN Reason: Pain (moderate 4-6) Prenat Multivit/[place]/Iron/Folic Ac ( Plus Iron) 1 each PO DAILY [facility] Last Admin: 02/19/20 08:04 Dose: 1 each Documented by: Simethicone (Simethicone) 160 mg PO QID NICOLA Last Admin: 02/19/20 16:54 Dose: 160 mg Documented by: Sodium Chloride (Saline Flush) 10 ml FLUSH ASDIRECTED PRN PRN Reason: Keep Vein Open Last Admin: 02/18/20 14:34 Dose: 10 ml Documented by: Discontinued Medications Citric Acid/Sodium Citrate (Bicitra Solution) 30 ml PO ONETIME ONE Stop: 02/16/20 20:31 Last Admin: 02/16/20 20:30 Dose: 30 ml Documented by: Citric Acid/Sodium Citrate (Bicitra Solution) Confirm Administered Dose 30 ml .ROUTE .STK-MED ONE Stop: 02/16/20 20:01 Last Admin: 02/17/20 06:17 Dose: Not Given Documented by: Furosemide (Lasix) 20 mg IVPUSH BIDDIURETIC [facility] Last Admin: 02/18/20 14:28 Dose: 20 mg Documented by: Cefazolin Sodium/Dextrose 2 gm (/ Premix) 50 mls @ 100 mls/hr IV ONETIME ONE Stop: 02/16/20 20:59 Last Admin: 02/16/20 20:29 Dose: 100 mls/hr Documented by: Magnesium Sulfate (Magnesium Sulfate In Water Premix) 4 gm in 100 mls @ 300 mls/hr IV ONETIME ONE Stop: 02/16/20 20:49 Last Admin: 02/16/20 21:21 Dose: 300 mls/hr Documented by: Magnesium Sulfate/Dextrose (Magnesium Sulfate In D5w 100 Premix) 1 gm in 100 mls @ 100 mls/hr IV ONETIME ONE Stop: 02/16/20 21:59 Last Admin: 02/17/20 06:17 Dose: Not Given Documented by: Magnesium Sulfate (Magnesium Sulfate In Water Premix) Confirm Administered Dose 100 mls @ as directed .ROUTE .STK-MED ONE Stop: 02/16/20 19:48 Last Admin: 02/16/20 21:22 Dose: 300 mls/hr Documented by: Oxytocin/Sodium Chloride (Pitocin In Ns 30 Unit/500 Ml) Confirm Administered Dose 60 unit in 1,000 mls @ as directed .ROUTE .STK-MED ONE Stop: 02/16/20 19:54 Magnesium Sulfate (Magnesium Sulfate In Water Premix) Confirm Administered Dose 20 gm in 500 mls @ as directed .ROUTE .STK-MED ONE Stop: 02/16/20 21:46 Last Admin: 02/17/20 06:17 Dose: Not Given Documented by: Labetalol HCl (Normodyne) 40 mg IVPUSH ONETIME ONE Stop: 02/16/20 20:31 Last Admin: 02/16/20 23:42 Dose: 40 mg Documented by: Labetalol HCl (Normodyne) Confirm Administered Dose 40 mg .ROUTE .STK-MED ONE Stop: 02/16/20 19:52 Last Admin: 02/17/20 06:17 Dose: Not Given Documented by: Labetalol HCl (Normodyne) 200 mg PO TID NICOLA Last Admin: 02/18/20 08:29 Dose: 200 mg Documented by: Labetalol HCl (Normodyne) Confirm Administered Dose 200 mg .ROUTE .STK-MED ONE Stop: 02/17/20 09:49 Last Admin: 02/17/20 09:51 Dose: Not Given Documented by: Tranexamic Acid (Cyklokapron) Confirm Administered Dose 1,000 mg .ROUTE .STK-MED ONE Stop: 02/16/20 19:52 Last Admin: 02/17/20 06:17 Dose: Not Given Documented by: - Interaction Infant Disposition, : in Room with Family Infant Interaction: Holding Infant Other Interaction: dad here with mom, in room due to COVID status Infant Feeding: Continues to Breastfeed, Other (see below) (using shield and tube to supplement, did have some formula by bottle supplementation) Support Person: - Recovery Exam Fundal Tone: Firm Fundal Level: 2 Fingerbreadths Below Umbilicus Fundal Placement: Right Lochia Amount: Small Lochia Color: Rubra/Red Perineum Description: Intact, Minimal Bruising/Swelling Episiotomy/Laceration: None Bladder Status: Voiding Urinary Elimination: Voided - My Orders Last 24 Hours: My Active Orders 02/18/20 22:15 Furosemide [Lasix] 20 mg IVPUSH BIDDIURETIC - Assessment Assessment:: POD #2 [id number] high risk gestation, s/p emergency repeat for placenta abruption and pre-Eclampsia BP ok on labetalol 200mg TID increased peripheral edema today bowel and bladder function resumed anesthesia resolved labs normalizing - Plan Plan:: Plan: repeat PIH labs in AM tomorrow will change labetalol to q8 hours instead of TID will give lasix 20mg BID today monitor BP and add or increase BP meds if/as indicated anticipate possible discharge Wednesday with recheck in clinic with Dr. Deras further management pending her clinical course and response to intervention. continue COVID precautions hmb Addendum: is diuresing nicely BP has been controlled today. willcontinue with plan. anticipate likely discharge 02-19-2019 and follow up with Dr. Deras in the clinic 02-21 if doing well. further management pending her clinical course hmb
[2020-02-19] MEDS: Sodium Chloride 0.9% 10 ML Syringe FLUSH PRN (22:06)
[2020-02-20] MEDS: Labetalol 100 MG Tab PO SCH ×2 (07:06→15:13)
[2020-02-20] MEDS: Prenatal Multivitamin with Calcium/Folic Acid/Iron Tab PO SCH (08:20)
[2020-02-20] MEDS: Ibuprofen 800 MG Tab PO PRN (08:20)
[2020-02-20] MEDS: Simethicone 80 MG Tab.Chew PO SCH ×2 (08:20→15:10)
[2020-02-20] MEDS: Furosemide 20 MG/2 ML VIAL IVPUSH SCH ×2 (08:22→15:13)
== END 2020-02-20 14:45 | disposition home or self-care (01) | DRG 540 ==
LOC: DL.OBCHECK 19:19 → DL.OB 19:57 → OBSVTOIN 20:46
PROVIDERS: ADMIT Family Medicine; ATTEND Family Medicine
PROC: 10D00Z1 Extraction of Products of Conception, Low, Open Approach (ICD-10-PCS; principal; 2020-02-18)
PROC: 8E0ZXY6 Isolation (ICD-10-PCS; 2020-02-18)
DX: O34.211 Maternal care for low transverse scar from previous cesarean delivery (principal); O99.52 Diseases of the respiratory system complicating childbirth; U07.1 COVID-19; O99.344 Other mental disorders complicating childbirth; O99.214 Obesity complicating childbirth; E66.9 Obesity, unspecified; F41.9 Anxiety disorder, unspecified; F32.9 Major depressive disorder, single episode, unspecified; O99.02 Anemia complicating childbirth; O45.93 Premature separation of placenta, unspecified, third trimester; D64.9 Anemia, unspecified; O14.14 Severe pre-eclampsia complicating childbirth; Z3A.35 35 weeks gestation of pregnancy; Z37.0 Single live birth
CPT/HCPCS: 01961; 36415; 51702; 59025; 80053; 81003; 82565; 82570; 83615; 83735; 84156; 84450; 84460; 84520; 84550; 85027; 86850; 86900; 86901; 86920; 86922; A9270-GY; J0690; J1885; J1940; J2590; J3475; J3490; J7030; J7120

== ENCOUNTER 2024-10-11 08:50 | Emergency (ER) | payer OTHER ==
[2024-10-11] MEDS: Diphtheria,Pertussis(Acell),Tetanus Vaccine 0.5 ML Syringe IM ONE (09:10)
[2024-10-11] MEDS: Lidocaine 1% with EPINEPHrine 1:100,000 20 ML MDV INJECT ONE (09:10)
== END 2024-10-11 10:05 | disposition home or self-care (01) ==
LOC: DL.ED 08:50
DX: S61.012A Laceration without foreign body of left thumb without damage to nail, initial encounter (principal); Z88.0 Allergy status to penicillin; Z23 Encounter for immunization; Z79.82 Long term (current) use of aspirin; Z79.899 Other long term (current) drug therapy; W26.0XXA Contact with knife, initial encounter; Y93.89 Activity, other specified
CPT/HCPCS: 12001; 90471; 90715; 99282-25; J2004